=== PATIENT | female | born 1955 | race African-American/Black ===

== ENCOUNTER 2023-04-03 12:35 | Inpatient (IN) | payer MEDICARE, OTHER ==
--- NOTE | 2023-04-03 12:50 | ED ---
General Adult HPI - General Source: patient, RN notes reviewed Mode of arrival: ambulatory Limitations: no limitations <David Serna - Last Filed: 04/03/23 12:49> - General Source: patient, RN notes reviewed Mode of arrival: ambulatory Limitations: no limitations <Chandni Shanks - Last Filed: 04/04/23 00:31> - General Chief complaint: Back Pain/Injury Stated complaint: fever back pain Time Seen by Provider: 04/03/23 12:49 - History of Present Illness Initial comments: 67-year-old female presents emergency Department with chief complaint of fever, hyperglycemia, hypertension. Patient is at [facility] states that she was not feeling well states that she had some body aches. Patient noted have low-grade fever per her report and her blood sugar was in the 300s. Patient states she does have some urinary frequency. Patient denies any significant cough or cold- like symptoms. Patient states she always has pain from her rheumatoid arthritis. Patient is at [facility] for alcohol rehab (David Serna) This is a 67-year-old female who presents to the emergency department for elevated blood sugar, bilateral flank pain, and disorientation. Patient has been at [facility] for 10 days for alcohol abuse. States that they have been giving her insulin for management of her diabetes, however over the last 3-4 days her sugar has been in the mid 400s, which is very unusual for her. She has type 2 diabetes but is otherwise not insulin-dependent, states that they're only giving this to her because she is at [facility]. She cannot recall what she was on prior to this. Denies any known history of DKA. States that over the last 2-3 days she has started to feel very disoriented and is concerned that she will fall. Additionally, she has had pain to the mid back and feels like she is having urinary frequency. Also feels very weak and was told that she has a low- grade fever. She was subsequently sent to the emergency department for further evaluation. (Chandni Shanks) - Related Data Home Medications Medication Instructions Recorded Confirmed Acetaminophen Tab [Tylenol] 650 mg PO Q4H PRN 04/03/23 04/03/23 Atorvastatin [Lipitor] 20 mg PO HS 04/03/23 04/03/23 Folic Acid 1 mg PO DAILY 04/03/23 04/03/23 Gabapentin [Neurontin] 400 mg PO BID PRN 04/03/23 04/03/23 Ibuprofen [Motrin Ib] 600 mg PO Q6H PRN 04/03/23 04/03/23 Insulin Regular, Human [Novolin R] See Protocol SQ AC-TID 04/03/23 04/03/23 Mag Hydrox/Aluminum Hyd/Simeth 30 ml PO Q4H PRN 04/03/23 04/03/23 [Mylanta Maximum Strength Liq] NIFEdipine XL [Procardia Xl] 30 mg PO DAILY 04/03/23 04/03/23 Sertraline HCl [Zoloft] 100 mg PO DAILY 04/03/23 04/03/23 atenoloL [Tenormin] 25 mg PO DAILY 04/03/23 04/03/23 buPROPion SR [Wellbutrin SR] 150 mg PO DAILY 04/03/23 04/03/23 traZODone HCL [Desyrel] 50 mg PO HS PRN 04/03/23 04/03/23 Allergies Allergy/AdvReac Type Severity Reaction Status Date / Time No Known Allergies Allergy Verified 04/03/23 22:28 Review of Systems ROS Other: All systems not noted in ROS Statement are negative. <David Serna - Last Filed: 04/03/23 12:49> ROS Other: All systems not noted in ROS Statement are negative. <Chandni Shanks - Last Filed: 04/04/23 00:31> ROS Statement: Those systems with pertinent positive or pertinent negative responses have been documented in the HPI. General Exam <David Serna - Last Filed: 04/03/23 12:49> Limitations: no limitations General appearance: alert, in no apparent distress Head exam: Present: atraumatic, normocephalic, normal inspection Respiratory exam: Present: normal lung sounds bilaterally. Absent: respiratory distress, wheezes, rales, rhonchi, stridor Cardiovascular Exam: Present: regular rate, normal rhythm, normal heart sounds. Absent: systolic murmur, diastolic murmur, rubs, gallop, clicks Back exam: Present: CVA tenderness (R), CVA tenderness (L) Neurological exam: Present: alert, oriented X3, CN II-XII intact Psychiatric exam: Present: normal affect, normal mood Skin exam: Present: warm, dry, intact, normal color. Absent: rash <Chandni Shanks - Last Filed: 04/04/23 00:31> - General Exam Comments Initial Comments: Visual Physical Exam Vital signs reviewed General: Well-appearing, nontoxic, no acute distress. Head: Normocephalic, atraumatic Eyes: PERRLA, EOMI ENT: Airway patent Chest: Nonlabored breathing Skin: No visual rash, normal skin tone Neuro: Alert and oriented 3 Musculoskeletal: No gross abnormalities (David Serna) Course Vital Signs 04/03/23 04/03/23 12:50 22:31 Temperature 99.2 F 98.8 F Pulse Rate 99 99 Respiratory 20 22 Rate Blood Pressure 80/51 125/83 O2 Sat by Pulse 97 98 Oximetry Medical Decision Making <David Serna - Last Filed: 04/03/23 12:49> - Lab Data Result diagrams: 04/03/23 13:27 04/03/23 13:27 - Radiology Data Radiology results: report reviewed, image reviewed <Chandni Shanks - Last Filed: 04/04/23 00:31> - Medical Decision Making I completed the quick note portion of this chart signed David Serna PA-C (David Serna) This is a 67-year-old female who presents to the emergency department for hyperglycemia, flank pain, and disorientation. Was pt. sent in by a medical professional or institution? @ -[facility] Did you speak to anyone other than the patient for history? @ -No Did you review nursing and triage notes? @ -Yes, and I agree, it is accurate with regards to the patient's symptoms. Were old charts reviewed? @ -No Differential Diagnosis? @ -Differential Flank Pain: UTI, pyelonephritis, kidney stone, musculoskeletal, pancreatitis, cholecystitis, this is not meant to be an all-inclusive list. EKG interpreted by me (3pts min.)? @ -EKG interpreted by me demonstrating the following: Sinus rhythm. Ventricular rate 94 beats per minute, IN interval 140 ms, QRS duration 68 ms, QTC 390 ms. X-rays interpreted by me (1pt min.)? @ -Chest x-ray obtained, my interpretation identifies no localized consolidat ions or infiltrates. CT interpreted by me (1pt min.)? @ -CT scan of the abdomen/pelvis obtained. My interpretation identifies no evidence of a ureteral calculus. U/S interpreted by me (1pt. min.)? @ -Not obtained What testing was considered but not performed? (CT, X-rays, U/S, labs)? Why? @ -None What meds were considered but not given? Why? @ -None Did you discuss the management of the patient with other professionals? @ -Yes, Maury Whitten with [facility], who accepts the patient for admission. Did you reconcile home meds? @ -Yes Was smoking cessation discussed for >3mins.? @ -No Was critical care preformed (if so, how long)? @ -No Were there social determinants of health that impacted care today? How? (Homelessness, low income, unemployed, alcoholism, drug addiction, trans portation, low edu. Level, literacy, decrease access to med. care, assisted, rehab)? @ -No Was there de-escalation of care discussed even if they declined? (Discuss DNR or withdrawal of care, Hospice)? @ -No What co-morbidities impacted this encounter? (DM, HTN, Smoking, COPD, CAD, Cancer, CVA, Hep., AIDS, mental health diagnosis, sleep apnea, morbid obesity)? @ -DM, rheumatoid arthritis, HLD, HTN Was patient admitted / discharged? @ -Admitted. Lab work obtained revealing leukocytosis as well as poor renal function. Patient has never been here in the past and we have no renal function for comparison. On discussion with the patient, she has no known history of kidney problems. Patient also found to have hypomagnesemia with a magnesium of 1.1. While lab work demonstrates a blood sugar of 299, anion gap of 14, and bicarb of 17, acetone is negative. COVID, influenza, and RSV testing were negative. Chest x-ray reveals no acute process. Urinalysis is suggestive of infection and was sent for culture. Computed tomography scan of the abdomen and pelvis was obtained. There was no evidence of a ureteral calculus, however she was found to have fat stranding around the inferior pole of the right kidney suggestive of pyelonephritis. This would be consistent with the patient's symptoms and presentation. She was incidentally noted to have moderate colonic stool burden and a partially calcified mass within the tail of the pancreas. Patient does meet septic criteria with leukocytosis and tachycardia and she was started on the septic protocol. However, she was in the waiting room for almost 9 hours, and we were therefore unable to address the sepsis as soon as we otherwise would have. Vancomycin and ceftriaxone administered initially, however vancomycin was discontinued when the urine returned appearing to be the source of infection along with the characteristic CT findings for pyelonephritis. Blood cultures obtained. 2L bolus of IV fluids administered per the 30-40 mL/kg requirements and she was started on maintenance IV fluids at 130 mL/hr. She was also given 4g Magnesium Sulfate for the hypomagnesemia. Patient admitted to medicine for sepsis likely secondary to UTI/pyelonephritis and hypomagnesemia. Consult for infectious disease placed. Undiagnosed new problem with uncertain prognosis? @ -None Drug Therapy requiring intensive monitoring for toxicity (Heparin, Nitro, Insu yuriy, Cardizem)? @ -None Were any procedures done? @ -None Diagnosis/symptom? @ -Sepsis, hypomagnesemia, pyelonephritis Acute, or Chronic, or Acute on Chronic? @ -Acute Uncomplicated (without systemic symptoms) or Complicated (systemic symptoms)? @ -Complicated Side effects of treatment? @ -None Exacerbation, Progression, or Severe Exacerbation] @ -Not applicable Poses a threat to life or bodily function? @ -Yes This case was discussed in detail with the attending ED physician, Dr. Don. Presentation, findings, and treatment plan discussed in detail as well. (Chandni Ramirez) - Lab Data Lab Results 04/03/23 04/03/23 04/03/23 Range/Units 13:27 13:27 13:27 WBC 16.1 H (3.8-10.6) k/uL RBC 3.16 L (3.80-5.40) m/uL Hgb 10.7 L (11.4-16.0) gm/dL Hct 31.7 L (34.0-46.0) % MCV 100.2 H (80.0-100.0) fL MCH 33.9 (25.0-35.0) pg MCHC 33.9 (31.0-37.0) g/dL RDW 15.2 (11.5-15.5) % Plt Count 222 (150-450) k/uL MPV 7.8 Neutrophils % 83 % Lymphocytes % 8 % Monocytes % 6 % Eosinophils % 2 % Basophils % 0 % Neutrophils # 13.3 H (1.3-7.7) k/uL Lymphocytes # 1.2 (1.0-4.8) k/uL Monocytes # 1.0 (0-1.0) k/uL Eosinophils # 0.3 (0-0.7) k/uL Basophils # 0.0 (0-0.2) k/uL Macrocytosis Slight VBG pH (7.31-7.41) VBG pCO2 (37-51) mmHg VBG HCO3 (24-28) mmol/L Sodium 136 L (137-145) mmol/L Potassium 4.4 (3.5-5.1) mmol/L Chloride 105 (98-107) mmol/L Carbon Dioxide 17 L (22-30) mmol/L Anion Gap 14 mmol/L BUN 37 H (7-17) mg/dL Creatinine 1.59 H (0.52-1.04) mg/dL Est GFR (CKD-EPI)AfAm 38 (>60 ml/min/1.73 sqM) Est GFR (CKD-EPI)NonAf 33 (>60 ml/min/1.73 sqM) Glucose 275 H (74-99) mg/dL POC Glucose (mg/dL) (70-110) mg/dL POC Glu Molding Manager ID Plasma Lactic Acid Maldonado (0.7-2.0) mmol/L Calcium 9.4 (8.4-10.2) mg/dL Magnesium 1.1 L (1.6-2.3) mg/dL Total Bilirubin 0.7 (0.2-1.3) mg/dL AST 27 (14-36) U/L ALT 19 (4-34) U/L Alkaline Phosphatase 68 (38-126) U/L Total Protein 6.8 (6.3-8.2) g/dL Albumin 3.9 (3.5-5.0) g/dL Urine Color Urine Appearance (Clear) Urine pH (5.0-8.0) Ur Specific Cornell (1.001-1.035) Urine Protein (Negative) Urine Glucose (UA) (Negative) Urine Ketones (Negative) Urine Blood (Negative) Urine Nitrite (Negative) Urine Bilirubin (Negative) Urine Urobilinogen (<2.0) mg/dL Ur Leukocyte Esterase (Negative) Urine RBC (0-5) /hpf Urine WBC (0-5) /hpf Urine WBC Clumps (None) /hpf Ur Squamous Epith Cells (0-4) /hpf Urine Bacteria (None) /hpf Hyaline Casts (0-2) /lpf Urine Mucus (None) /hpf Acetone, Qual (Negative) Influenza Type A (PCR) Not Detected (Not Detectd) Influenza Type B (PCR) Not Detected (Not Detectd) RSV (PCR) Not Detected (Not Detectd) SARS-CoV-2 (PCR) Not Detected (Not Detectd) 04/03/23 04/03/23 04/03/23 Range/Units 13:27 13: 18:03 WBC (3.8-10.6) k/uL RBC (3.80-5.40) m/uL Hgb (11.4-16.0) gm/dL Hct (34.0-46.0) % MCV (80.0-100.0) fL MCH (25.0-35.0) pg MCHC (31.0-37.0) g/dL RDW (11.5-15.5) % Plt Count (150-450) k/uL MPV Neutrophils % % Lymphocytes % % Monocytes % % Eosinophils % % Basophils % % Neutrophils # (1.3-7.7) k/uL Lymphocytes # (1.0-4.8) k/uL Monocytes # (0-1.0) k/uL Eosinophils # (0-0.7) k/uL Basophils # (0-0.2) k/uL Macrocytosis VBG pH (7.31-7.41) VBG pCO2 (37-51) mmHg VBG HCO3 (24-28) mmol/L Sodium (137-145) mmol/L Potassium (3.5-5.1) mmol/L Chloride (98-107) mmol/L Carbon Dioxide (22-30) mmol/L Anion Gap mmol/L BUN (7-17) mg/dL Creatinine (0.52-1.04) mg/dL Est GFR (CKD-EPI)AfAm (>60 ml/min/1.73 sqM) Est GFR (CKD-EPI)NonAf (>60 ml/min/1.73 sqM) Glucose (74-99) mg/dL POC Glucose (mg/dL) (70-110) mg/dL POC Glu Molding Manager ID Plasma Lactic Acid Maldonado 1.7 (0.7-2.0) mmol/L Calcium (8.4-10.2) mg/dL Magnesium (1.6-2.3) mg/dL Total Bilirubin (0.2-1.3) mg/dL AST (14-36) U/L ALT (4-34) U/L Alkaline Phosphatase (38-126) U/L Total Protein (6.3-8.2) g/dL Albumin (3.5-5.0) g/dL Urine Color Yellow Urine Appearance Cloudy H (Clear) Urine pH 5.5 (5.0-8.0) Ur Specific Cornell 1.023 (1.001-1.035) Urine Protein 1+ H (Negative) Urine Glucose (UA) Trace H (Negative) Urine Ketones Negative (Negative) Urine Blood Negative (Negative) Urine Nitrite Negative (Negative) Urine Bilirubin Negative (Negative) Urine Urobilinogen <2.0 (<2.0) mg/dL Ur Leukocyte Esterase Large H (Negative) Urine RBC 2 (0-5) /hpf Urine WBC 113 H (0-5) /hpf Urine WBC Clumps Rare H (None) /hpf Ur Squamous Epith Cells 2 (0-4) /hpf Urine Bacteria Rare H (None) /hpf Hyaline Casts 3 H (0-2) /lpf Urine Mucus Rare H (None) /hpf Acetone, Qual Negative (Negative) Influenza Type A (PCR) (Not Detectd) Influenza Type B (PCR) (Not Detectd) RSV (PCR) (Not Detectd) SARS-CoV-2 (PCR) (Not Detectd) 04/03/23 04/03/23 04/03/23 Range/Units 20:24 21:45 22:20 WBC (3.8-10.6) k/uL RBC (3.80-5.40) m/uL Hgb (11.4-16.0) gm/dL Hct (34.0-46.0) % MCV (80.0-100.0) fL MCH (25.0-35.0) pg MCHC (31.0-37.0) g/dL RDW (11.5-15.5) % Plt Count (150-450) k/uL MPV Neutrophils % % Lymphocytes % % Monocytes % % Eosinophils % % Basophils % % Neutrophils # (1.3-7.7) k/uL Lymphocytes # (1.0-4.8) k/uL Monocytes # (0-1.0) k/uL Eosinophils # (0-0.7) k/uL Basophils # (0-0.2) k/uL Macrocytosis VBG pH 7.38 (7.31-7.41) VBG pCO2 39 (37-51) mmHg VBG HCO3 23 L (24-28) mmol/L Sodium (137-145) mmol/L Potassium (3.5-5.1) mmol/L Chloride (98-107) mmol/L Carbon Dioxide (22-30) mmol/L Anion Gap mmol/L BUN (7-17) mg/dL Creatinine (0.52-1.04) mg/dL Est GFR (CKD-EPI)AfAm (>60 ml/min/1.73 sqM) Est GFR (CKD-EPI)NonAf (>60 ml/min/1.73 sqM) Glucose (74-99) mg/dL POC Glucose (mg/dL) 299 H 234 H (70-110) mg/dL POC Glu Molding Manager ID Chuck Rollins Felix Plasma Lactic Acid Maldonado (0.7-2.0) mmol/L Calcium (8.4-10.2) mg/dL Magnesium (1.6-2.3) mg/dL Total Bilirubin (0.2-1.3) mg/dL AST (14-36) U/L ALT (4-34) U/L Alkaline Phosphatase (38-126) U/L Total Protein (6.3-8.2) g/dL Albumin (3.5-5.0) g/dL Urine Color Urine Appearance (Clear) Urine pH (5.0-8.0) Ur Specific Cornell (1.001-1.035) Urine Protein (Negative) Urine Glucose (UA) (Negative) Urine Ketones (Negative) Urine Blood (Negative) Urine Nitrite (Negative) Urine Bilirubin (Negative) Urine Urobilinogen (<2.0) mg/dL Ur Leukocyte Esterase (Negative) Urine RBC (0-5) /hpf Urine WBC (0-5) /hpf Urine WBC Clumps (None) /hpf Ur Squamous Epith Cells (0-4) /hpf Urine Bacteria (None) /hpf Hyaline Casts (0-2) /lpf Urine Mucus (None) /hpf Acetone, Qual (Negative) Influenza Type A (PCR) (Not Detectd) Influenza Type B (PCR) (Not Detectd) RSV (PCR) (Not Detectd) SARS-CoV-2 (PCR) (Not Detectd) Disposition <David Serna - Last Filed: 04/03/23 12:49> <Chandni Shanks - Last Filed: 04/04/23 00:31> Clinical Impression: Sepsis, Hypomagnesemia, Renal failure, UTI (urinary tract infection), Pyelonephritis Disposition: ADMITTED IP TO THIS HOSP
[2023-04-03 13:36] LABS: Basophils % (A) 0 %; Eosinophils # (A) 0.3 k/uL (0-0.7); Eosinophils % (A) 2 %; HCT 31.7 % (34.0-46.0); HGB 10.7 gm/dL (11.4-16.0); Lymphocytes # (A) 1.2 k/uL (1.0-4.8); Lymphocytes % (A) 8 %; MCH 33.9 pg (25.0-35.0); MCHC 33.9 g/dL (31.0-37.0); MCV 100.2 fL (80.0-100.0); Macrocytosis Slight; Mean Platelet Volume 7.8; Monocytes % (A) 6 %; Neutrophils # (A) 13.3 k/uL (1.3-7.7); Neutrophils % (A) 83 %; Platelet Count 222 k/uL (150-450); RBC 3.16 m/uL (3.80-5.40); RDW 15.2 % (11.5-15.5); WBC 16.1 k/uL (3.8-10.6)
[2023-04-03 13:56] LABS: ALT 19 U/L (4-34); AST 27 U/L (14-36); African American GFR (CKD) 38 (>60 ml/min/1.73 sqM); Albumin 3.9 g/dL (3.5-5.0); Alkaline Phosphatase 68 U/L (38-126); Anion Gap 14 mmol/L; Blood Urea Nitrogen 37 mg/dL (7-17); Calcium 9.4 mg/dL (8.4-10.2); Carbon Dioxide 17 mmol/L (22-30); Chloride 105 mmol/L (98-107); Glucose 275 mg/dL (74-99); Magnesium 1.1 mg/dL (1.6-2.3); Non-African American GFR(CKD) 33 (>60 ml/min/1.73 sqM); Potassium 4.4 mmol/L (3.5-5.1); Sodium 136 mmol/L (137-145); Total Bilirubin 0.7 mg/dL (0.2-1.3); Total Protein 6.8 g/dL (6.3-8.2)
--- NOTE | 2023-04-03 14:08 | XR ---
EXAMINATION TYPE: XR chest 2V DATE OF EXAM: 04/03/2023 1:53 PM CLINICAL INDICATION:Female, 67 years old with history of fever; COMPARISON: None TECHNIQUE: XR chest 2V Frontal and lateral views of the chest. FINDINGS: Lungs/Pleura: There is no evidence of pleural effusion, focal consolidation, or pneumothorax. Pulmonary vascularity: Unremarkable. Heart/mediastinum: Cardiomediastinal silhouette is unremarkable. Musculoskeletal: No acute osseous pathology. IMPRESSION: No acute cardiopulmonary disease/process.
[2023-04-03] MEDS ORDERED: GABAPENTIN 400 MG CAP PO STA (19:26)
[2023-04-03] MEDS ORDERED: ACETAMINOPHEN TAB 325 MG TAB PO STA (19:32)
[2023-04-03 20:25] LABS: Glucose,Whole Blood 299 mg/dL (70-110)
[2023-04-03] MEDS ORDERED: VANCOMYCIN IV PER PHARMACY 1 EACH MISC MISCELLANE PRN (20:44)
[2023-04-03] MEDS ORDERED: SODIUM CHLORIDE 0.9% 2,000 ML IV STA (20:44)
[2023-04-03] MEDS ORDERED: VANCOMYCIN 750 MG in SODIUM CHLORIDE 0.9% 250 ML IVPB STA (20:46)
[2023-04-03] MEDS ORDERED: ACETAMINOPHEN TAB 500 MG TAB PO STA (21:40)
[2023-04-03] MEDS ORDERED: MORPHINE SULFATE 4 MG/ML SYRINGE IVP STA (21:40)
[2023-04-03] MEDS ORDERED: INSULIN REGULAR BOLUS (FROM DRIP BAG) IV ONE (21:46)
[2023-04-03] MEDS ORDERED: INSULIN REGULAR 100 UNIT/ML VIAL (IV) IV ONE (22:00)
[2023-04-03] MEDS ORDERED: D5-0.45% NACL WITH KCL 20MEQ/L 1,000 ML IV SCH (22:00)
[2023-04-03] MEDS ORDERED: INSULIN REGULAR 100 UNIT in SODIUM CHLORIDE 0.9% 100 ML IV SCH (22:00)
[2023-04-03 22:08] LABS: VBG PH 7.38 (7.31-7.41)
[2023-04-03 22:17] LABS: Appearance,Urine Cloudy (Clear); Bacteria,Urine Rare /hpf; Bilirubin,Urine Negative (Negative); Blood,Urine Negative (Negative); Color,Urine Yellow; Glucose,Urine (UA) Trace (Negative); Hyaline Casts,Urine 3 /lpf (0-2); Ketones,Urine Negative (Negative); Leukocyte Esterase,Urine Large (Negative); Mucus,Urine Rare /hpf; Nitrite,Urine Negative (Negative); PH, Urine 5.5 (5.0-8.0); Protein,Urine 1+ (Negative); RBC,Urine 2 /hpf (0-5); Specific Gravity,Urine 1.023 (1.001-1.035); Squamous Epithelial Cell,Urine 2 /hpf (0-4); Urobilinogen,Urine <2.0 mg/dL (<2.0); WBC,Urine 113 /hpf (0-5)
[2023-04-03 22:22] LABS: Glucose,Whole Blood 234 mg/dL (70-110)
[2023-04-03] MEDS: MAGNESIUM SULFATE-D5W PMX 1 GM in DEXTROSE/WATER 1 100ML.BAG IVPB SCH ×3 (22:26→23:46)
[2023-04-03] MEDS ORDERED: ACETAMINOPHEN TAB 325 MG TAB PO PRN (23:14)
[2023-04-03] MEDS ORDERED: ONDANSETRON 4 MG/2 ML VIAL IVP PRN (23:14)
[2023-04-03] MEDS ORDERED: NALOXONE 0.4 MG/ML 1 ML VIAL IV PRN (23:14)
[2023-04-03] MEDS ORDERED: MAG HYDROX/AL HYDROX/SIMETH 30 ML CUP PO PRN (23:16)
--- NOTE | 2023-04-03 23:34 | CT ---
EXAM: CT Abdomen and Pelvis Without Intravenous Contrast CLINICAL HISTORY: ITS.REASON CT Reason: Left flank pain TECHNIQUE: Axial computed tomography images of the abdomen and pelvis without intravenous contrast. CTDI is 5.5 mGy and DLP is 262 mGy-cm. This CT exam was performed using one or more of the following dose reduction techniques: automated exposure control, adjustment of the mA and/or kV according to patient size, and/or use of iterative reconstruction technique. COMPARISON: No relevant prior studies available. FINDINGS: ABDOMEN: Liver: Unremarkable. Gallbladder and bile ducts: Unremarkable. Pancreas: Peripherally calcified mass within the tail of the pancreas measuring 3.4 x 2.8 cm. Spleen: Unremarkable. Adrenals: Unremarkable. Kidneys and ureters: Fat stranding around the inferior pole of the right kidney. No ureteral stone. Infection/pyelonephritis considered the most likely etiology. No hydronephrosis. Stomach and bowel: Moderate colonic stool burden. No obstruction or inflammatory changes along the GI tract. PELVIS: Appendix: No findings to suggest acute appendicitis. Bladder: Unremarkable. Reproductive: Hysterectomy. ABDOMEN and PELVIS: Intraperitoneal space: Unremarkable. No free air. No significant fluid collection. Bones/joints: No acute fracture. Soft tissues: Unremarkable. Vasculature: Unremarkable. Lymph nodes: Unremarkable. IMPRESSION: 1. Fat stranding around the inferior pole of the right kidney. No ureteral stone. Infection/pyelonephritis considered the most likely etiology. 2. Moderate colonic stool burden. No obstruction or inflammatory changes along the GI tract. 3. Peripherally calcified mass within the tail of the pancreas measuring 3.4 x 2.8 cm. Consider MRI/MRCP for further evaluation.
[2023-04-03] MEDS: ACETAMINOPHEN TAB 325 MG TAB PO PRN (23:55)
[2023-04-04] MEDS: MAGNESIUM SULFATE-D5W PMX 1 GM in DEXTROSE/WATER 1 100ML.BAG IVPB SCH ×2 (00:43→01:46)
[2023-04-04] MEDS: SODIUM CHLORIDE 0.9% 1,000 ML IV SCH ×2 (05:10→13:38)
[2023-04-04] MEDS: GABAPENTIN 400 MG CAP PO PRN ×2 (05:12→09:32)
[2023-04-04] MEDS: MORPHINE SULFATE 4 MG/ML SYRINGE IV PRN ×2 (05:12→11:42)
[2023-04-04 07:52] LABS: African American GFR (CKD) 52 (>60 ml/min/1.73 sqM); Non-African American GFR(CKD) 45 (>60 ml/min/1.73 sqM)
[2023-04-04] MEDS: buPROPion SR 150 MG TABLET.ER PO SCH (08:18)
[2023-04-04] MEDS: SERTRALINE 100 MG TAB PO SCH (08:18)
[2023-04-04] MEDS: atenoloL 25 MG TAB PO SCH (08:18)
[2023-04-04] MEDS: FOLIC ACID 1 MG TAB PO SCH (08:18)
[2023-04-04 08:53] LABS: Glucose,Whole Blood 299 mg/dL (70-110)
[2023-04-04] MEDS ORDERED: NIFEdipine XL 30 MG TAB.ER.24 PO SCH (09:00)
[2023-04-04] MEDS: ACETAMINOPHEN TAB 325 MG TAB PO PRN ×2 (09:37→22:19)
[2023-04-04 11:52] LABS: Glucose,Whole Blood 244 mg/dL (70-110)
[2023-04-04 12:19] LABS: Glucose,Whole Blood 232 mg/dL (70-110)
[2023-04-04] MEDS ORDERED: GABAPENTIN 400 MG CAP PO PRN (12:29)
--- NOTE | 2023-04-04 12:36 | P.HPIM ---
History of Present Illness 67-year-old female came in for fever hyperglycemia. Patient is at [facility] her last drink was 1415 days ago patient is shaking quite a bit. Patient does have history of from her arthritis. Patient denied any cough denied any dysuria patient is comparing of the right flank pain moderate pain CT of the abdomen did show some possible pyelonephritis versus some pancreatitis in the tail of the pancreas. Lipase is not available which will be ordered, UA did show a white blood cell counseling and. Blood cultures were obtain patient had a fever of 103 COVID-19 influenza and RSV are negative. Patient main complaint is excessi ve shaking and patient complains a she has anxiety. REVIEW OF SYSTEMS: CONSTITUTIONAL: No fever, no malaise, no fatigue. HEENT: No recent visual problems or hearing problems. Denied any sore throat. CARDIOVASCULAR: No chest pain, orthopnea, PND, no palpitations, no syncope. PULMONARY: No shortness of breath, no cough, no hemoptysis. GASTROINTESTINAL: No diarrhea, no nausea, no vomiting as mentioned in HPI NEUROLOGICAL: No headaches, no weakness, no numbness. HEMATOLOGICAL: Denies any bleeding or petechiae. GENITOURINARY: Denies any burning micturition, frequency, or urgency. MUSCULOSKELETAL/RHEUMATOLOGICAL: Denies any joint pain, swelling, or any muscle pain. ENDOCRINE: Denies any polyuria or polydipsia. The rest of the 14-point review of systems is negative. PHYSICAL EXAMINATION: GENERAL: The patient is alert and oriented x3, not in any acute distress. Patient is shaking a thin built female HEENT: Pupils are round and equally reacting to light. EOMI. No scleral icterus. No conjunctival pallor. Normocephalic, atraumatic. No pharyngeal erythema. No thyromegaly. CARDIOVASCULAR: S1 and S2 present. No murmurs, rubs, or gallops. PULMONARY: Chest is clear to auscultation, no wheezing or crackles. ABDOMEN: Soft, minimal right flank tenderness, nondistended, normoactive bowel sounds. No palpable organomegaly. MUSCULOSKELETAL: No joint swelling or deformity. EXTREMITIES: No cyanosis, clubbing, or pedal edema. NEUROLOGICAL: Gross neurological examination did not reveal any focal deficits. SKIN: No rashes. Assessment and plan -Sepsis: Secondary to urinary tract infection and pyelonephritis: Patient will be started on Rocephin 2 g awaiting blood cultures and urine cultures. -Excessive shaking secondary to anxiety and fever -Possibly a pancreatitis as per the computed tomography scan of the abdomen: Will order lipase patient will continued on IV fluids we'll cut down the IV fluids -Hypertension: Hold off on amlodipine is the blood pressure medications will be continued -Acute renal failure secondary to sepsis continue with IV fluids currently want a kidney function possibly acute tubular necrosis -Hyperlipidemia -Peripheral neuropathy -Type 2 diabetes mellitus uncontrolled elevated blood sugars with sepsis patient was started on sliding scale insulin depending of insulin requirement will titrate the insulin regimen -Hyperlipidemia -Rheumatoid arthritis history -Alcohol abuse history presently from [facility] possibly not having withdrawals as her last alcohol drink was 14 days ago DVT prophylaxis: Subcutaneous heparin Past Medical History Past Medical History: Diabetes Mellitus, Hyperlipidemia, Hypertension, Rheumatoid Arthritis (RA) History of Any Multi-Drug Resistant Organisms: None Reported Past Surgical History: Hysterectomy, Joint Replacement, Orthopedic Surgery Past Alcohol Use History: Abuse Past Drug Use History: Marijuana Medications and Allergies Home Medications Medication Instructions Recorded Confirmed Type Acetaminophen Tab [Tylenol] 650 mg PO Q4H PRN 04/03/23 04/03/23 History Atorvastatin [Lipitor] 20 mg PO HS 04/03/23 04/03/23 History Folic Acid 1 mg PO DAILY 04/03/23 04/03/23 History Gabapentin [Neurontin] 400 mg PO BID PRN 04/03/23 04/03/23 History Ibuprofen [Motrin Ib] 600 mg PO Q6H PRN 04/03/23 04/03/23 History Insulin Regular, Human [Novolin R] See Protocol SQ AC-TID 04/03/23 04/03/23 History Mag Hydrox/Aluminum Hyd/Simeth 30 ml PO Q4H PRN 04/03/23 04/03/23 History [Mylanta Maximum Strength Liq] NIFEdipine XL [Procardia Xl] 30 mg PO DAILY 04/03/23 04/03/23 History Sertraline HCl [Zoloft] 100 mg PO DAILY 04/03/23 04/03/23 History atenoloL [Tenormin] 25 mg PO DAILY 04/03/23 04/03/23 History buPROPion SR [Wellbutrin SR] 150 mg PO DAILY 04/03/23 04/03/23 History traZODone HCL [Desyrel] 50 mg PO HS PRN 04/03/23 04/03/23 History Allergies Allergy/AdvReac Type Severity Reaction Status Date / Time No Known Allergies Allergy Verified 04/03/23 22:28 Physical Exam Vitals: Vital Signs Temp Pulse Resp BP Pulse Ox 04/04/23 12:00 101.1 F H 102 H 18 136/84 92 L 04/04/23 11:30 100.7 F H 107 H 18 134/83 91 L 04/04/23 10:55 100.2 F H 110 H 18 98 04/04/23 10:00 108 H 18 121/81 96 04/04/23 09:36 103.0 F H 113 H 18 153/102 98 04/04/23 07:51 113 H 18 130/85 96 04/04/23 06:11 105 H 18 126/80 95 04/04/23 05:00 115 H 18 134/77 98 04/04/23 03:27 95 19 116/75 04/04/23 01:48 96 17 119/75 04/04/23 00:33 93 17 04/03/23 22:31 98.8 F 99 22 125/83 98 04/03/23 12:50 99.2 F 99 20 80/51 97 Results CBC & Chem 7: 04/03/23 13:27 04/04/23 07:22 Labs: Abnormal Lab Results - Last 24 Hours (Table) 04/03/23 04/03/23 04/03/23 Range/Units 13:27 13:27 18:03 WBC 16.1 H (3.8-10.6) k/uL RBC 3.16 L (3.80-5.40) m/uL Hgb 10.7 L (11.4-16.0) gm/dL Hct 31.7 L (34.0-46.0) % MCV 100.2 H (80.0-100.0) fL Neutrophils # 13.3 H (1.3-7.7) k/uL VBG HCO3 (24-28) mmol/L Sodium 136 L (137-145) mmol/L Carbon Dioxide 17 L (22-30) mmol/L BUN 37 H (7-17) mg/dL Creatinine 1.59 H (0.52-1.04) mg/dL Glucose 275 H (74-99) mg/dL POC Glucose (mg/dL) (70-110) mg/dL Hemoglobin A1c (<=6.0) % Magnesium 1.1 L (1.6-2.3) mg/dL Urine Appearance Cloudy H (Clear) Urine Protein 1+ H (Negative) Urine Glucose (UA) Trace H (Negative) Ur Leukocyte Esterase Large H (Negative) Urine WBC 113 H (0-5) /hpf Urine WBC Clumps Rare H (None) /hpf Urine Bacteria Rare H (None) /hpf Hyaline Casts 3 H (0-2) /lpf Urine Mucus Rare H (None) /hpf 04/03/23 04/03/23 04/03/23 Range/Units 20:24 21:45 21:45 WBC (3.8-10.6) k/uL RBC (3.80-5.40) m/uL Hgb (11.4-16.0) gm/dL Hct (34.0-46.0) % MCV (80.0-100.0) fL Neutrophils # (1.3-7.7) k/uL VBG HCO3 23 L (24-28) mmol/L Sodium (137-145) mmol/L Carbon Dioxide (22-30) mmol/L BUN (7-17) mg/dL Creatinine (0.52-1.04) mg/dL Glucose (74-99) mg/dL POC Glucose (mg/dL) 299 H (70-110) mg/dL Hemoglobin A1c 8.0 H (<=6.0) % Magnesium (1.6-2.3) mg/dL Urine Appearance (Clear) Urine Protein (Negative) Urine Glucose (UA) (Negative) Ur Leukocyte Esterase (Negative) Urine WBC (0-5) /hpf Urine WBC Clumps (None) /hpf Urine Bacteria (None) /hpf Hyaline Casts (0-2) /lpf Urine Mucus (None) /hpf 04/03/23 04/04/23 04/04/23 Range/Units 22:20 07:22 08:52 WBC (3.8-10.6) k/uL RBC (3.80-5.40) m/uL Hgb (11.4-16.0) gm/dL Hct (34.0-46.0) % MCV (80.0-100.0) fL Neutrophils # (1.3-7.7) k/uL VBG HCO3 (24-28) mmol/L Sodium (137-145) mmol/L Carbon Dioxide (22-30) mmol/L BUN (7-17) mg/dL Creatinine 1.24 H (0.52-1.04) mg/dL Glucose (74-99) mg/dL POC Glucose (mg/dL) 234 H 299 H (70-110) mg/dL Hemoglobin A1c (<=6.0) % Magnesium (1.6-2.3) mg/dL Urine Appearance (Clear) Urine Protein (Negative) Urine Glucose (UA) (Negative) Ur Leukocyte Esterase (Negative) Urine WBC (0-5) /hpf Urine WBC Clumps (None) /hpf Urine Bacteria (None) /hpf Hyaline Casts (0-2) /lpf Urine Mucus (None) /hpf 04/04/23 04/04/23 Range/Units 11:51 12:18 WBC (3.8-10.6) k/uL RBC (3.80-5.40) m/uL Hgb (11.4-16.0) gm/dL Hct (34.0-46.0) % MCV (80.0-100.0) fL Neutrophils # (1.3-7.7) k/uL VBG HCO3 (24-28) mmol/L Sodium (137-145) mmol/L Carbon Dioxide (22-30) mmol/L BUN (7-17) mg/dL Creatinine (0.52-1.04) mg/dL Glucose (74-99) mg/dL POC Glucose (mg/dL) 244 H 232 H (70-110) mg/dL Hemoglobin A1c (<=6.0) % Magnesium (1.6-2.3) mg/dL Urine Appearance (Clear) Urine Protein (Negative) Urine Glucose (UA) (Negative) Ur Leukocyte Esterase (Negative) Urine WBC (0-5) /hpf Urine WBC Clumps (None) /hpf Urine Bacteria (None) /hpf Hyaline Casts (0-2) /lpf Urine Mucus (None) /hpf
[2023-04-04] MEDS: INSULIN ASPART (NovoLOG) 100 UNIT/ML VIAL SQ SCH ×3 (13:35→22:20)
[2023-04-04] MEDS ORDERED: VANCOMYCIN 750 MG in SODIUM CHLORIDE 0.9% 250 ML IVPB ONE (18:00)
[2023-04-04] MEDS ORDERED: ACETAMINOPHEN TAB 325 MG TAB PO STA (18:10)
[2023-04-04] MEDS: HYDROcodone/APAP 5-325MG 1 EACH TAB PO PRN (18:10)
[2023-04-04] MEDS: LORazepam 2 MG/ML INJ IV PRN (18:14)
[2023-04-04 20:35] LABS: Glucose,Whole Blood 160 mg/dL (70-110)
[2023-04-04] MEDS: ATORVASTATIN 20 MG TAB PO SCH ×2 (22:18→22:20)
[2023-04-04] MEDS: HEPARIN SODIUM,PORCINE 5,000 UNIT/ML 1 ML VIAL SQ SCH (22:20)
[2023-04-05] MEDS ORDERED: FUROSEMIDE 10 MG/ML 2 ML VIAL IV STA (01:46)
[2023-04-05] MEDS: SODIUM CHLORIDE 0.9% 1,000 ML IV SCH (01:57)
[2023-04-05] MEDS: HYDROcodone/APAP 5-325MG 1 EACH TAB PO PRN ×2 (02:17→13:12)
[2023-04-05] MEDS: LORazepam 2 MG/ML INJ IV PRN ×4 (04:13→23:54)
[2023-04-05 05:32] LABS: Glucose,Whole Blood 112 mg/dL (70-110)
[2023-04-05] MEDS: INSULIN ASPART (NovoLOG) 100 UNIT/ML VIAL SQ SCH ×4 (06:49→22:42)
--- NOTE | 2023-04-05 07:28 | P.CONS ---
History of Present Illness - Reason for Consult Consult date: 04/04/23 - History of Present Illness Patient is a 67-year-old female with a past medical significant for diabetes mellitus hypertension hyperlipidemia rheumatoid arthritis patient presented to the hospital yesterday afternoon for evaluation of fever and elevated blood sugar apparently the patient has been in [place] getting rehabilitation however the patient noticed to have increasing generalized body aches noticed to have elevated blood sugar for the patient has been sent to the hospital on arrival to the ER patient was initially febrile however subsequently did spike a fever of 103 degrees patient was tachycardic but not hypotensive mildly hypoxic requiring supplemental oxygen patient did have a white count of 16.1 with a left shift ,Creatinine has been mildly elevated with M-Zole normal patient did have a positive UA influenza RSV and COVID testing was negative patient did have a chest x-ray no acute cardiopulmonary disease process patient did have a CT abdominal pelvis for swelling along the inferior pole of the right kidney no ureteral stone pyelonephritis considered most likely etiology moderate colonic stool burden no obstruction or inflammatory changes peripherally calcified mass within the tail of the pancreas patient was started on ceftriaxone infectious disease was consulted for further management of antibiotic therapy Past Medical History Past Medical History: Diabetes Mellitus, Hyperlipidemia, Hypertension, Rheumatoid Arthritis (RA) History of Any Multi-Drug Resistant Organisms: None Reported Past Surgical History: Hysterectomy, Joint Replacement, Orthopedic Surgery Past Alcohol Use History: Abuse Past Drug Use History: Marijuana Medications and Allergies Home Medications Medication Instructions Recorded Confirmed Type Acetaminophen Tab [Tylenol] 650 mg PO Q4H PRN 04/03/23 04/03/23 History Atorvastatin [Lipitor] 20 mg PO HS 04/03/23 04/03/23 History Folic Acid 1 mg PO DAILY 04/03/23 04/03/23 History Gabapentin [Neurontin] 400 mg PO BID PRN 04/03/23 04/03/23 History Ibuprofen [Motrin Ib] 600 mg PO Q6H PRN 04/03/23 04/03/23 History Insulin Regular, Human [Novolin R] See Protocol SQ AC-TID 04/03/23 04/03/23 History Mag Hydrox/Aluminum Hyd/Simeth 30 ml PO Q4H PRN 04/03/23 04/03/23 History [Mylanta Maximum Strength Liq] NIFEdipine XL [Procardia Xl] 30 mg PO DAILY 04/03/23 04/03/23 History Sertraline HCl [Zoloft] 100 mg PO DAILY 04/03/23 04/03/23 History atenoloL [Tenormin] 25 mg PO DAILY 04/03/23 04/03/23 History buPROPion SR [Wellbutrin SR] 150 mg PO DAILY 04/03/23 04/03/23 History traZODone HCL [Desyrel] 50 mg PO HS PRN 04/03/23 04/03/23 History Allergies Allergy/AdvReac Type Severity Reaction Status Date / Time No Known Allergies Allergy Verified 04/03/23 22:28 Physical Exam Vitals: Vital Signs Temp Pulse Resp BP Pulse Ox 04/04/23 12:00 101.1 F H 102 H 18 136/84 92 L 04/04/23 11:30 100.7 F H 107 H 18 134/83 91 L 04/04/23 10:55 100.2 F H 110 H 18 98 04/04/23 10:00 108 H 18 121/81 96 04/04/23 09:36 103.0 F H 113 H 18 153/102 98 04/04/23 07:51 113 H 18 130/85 96 04/04/23 06:11 105 H 18 126/80 95 04/04/23 05:00 115 H 18 134/77 98 04/04/23 03:27 95 19 116/75 04/04/23 01:48 96 17 119/75 04/04/23 00:33 93 17 04/03/23 22:31 98.8 F 99 22 125/83 98 Results CBC & Chem 7: 04/03/23 13:27 04/04/23 07:22 Labs: Abnormal Lab Results - Last 24 Hours (Table) 04/03/23 04/03/23 04/03/23 Range/Units 13:27 13:27 18:03 WBC 16.1 H (3.8-10.6) k/uL RBC 3.16 L (3.80-5.40) m/uL Hgb 10.7 L (11.4-16.0) gm/dL Hct 31.7 L (34.0-46.0) % MCV 100.2 H (80.0-100.0) fL Neutrophils # 13.3 H (1.3-7.7) k/uL VBG HCO3 (24-28) mmol/L Sodium 136 L (137-145) mmol/L Carbon Dioxide 17 L (22-30) mmol/L BUN 37 H (7-17) mg/dL Creatinine 1.59 H (0.52-1.04) mg/dL Glucose 275 H (74-99) mg/dL POC Glucose (mg/dL) (70-110) mg/dL Hemoglobin A1c (<=6.0) % Magnesium 1.1 L (1.6-2.3) mg/dL Urine Appearance Cloudy H (Clear) Urine Protein 1+ H (Negative) Urine Glucose (UA) Trace H (Negative) Ur Leukocyte Esterase Large H (Negative) Urine WBC 113 H (0-5) /hpf Urine WBC Clumps Rare H (None) /hpf Urine Bacteria Rare H (None) /hpf Hyaline Casts 3 H (0-2) /lpf Urine Mucus Rare H (None) /hpf 04/03/23 04/03/23 04/03/23 Range/Units 20:24 21:45 21:45 WBC (3.8-10.6) k/uL RBC (3.80-5.40) m/uL Hgb (11.4-16.0) gm/dL Hct (34.0-46.0) % MCV (80.0-100.0) fL Neutrophils # (1.3-7.7) k/uL VBG HCO3 23 L (24-28) mmol/L Sodium (137-145) mmol/L Carbon Dioxide (22-30) mmol/L BUN (7-17) mg/dL Creatinine (0.52-1.04) mg/dL Glucose (74-99) mg/dL POC Glucose (mg/dL) 299 H (70-110) mg/dL Hemoglobin A1c 8.0 H (<=6.0) % Magnesium (1.6-2.3) mg/dL Urine Appearance (Clear) Urine Protein (Negative) Urine Glucose (UA) (Negative) Ur Leukocyte Esterase (Negative) Urine WBC (0-5) /hpf Urine WBC Clumps (None) /hpf Urine Bacteria (None) /hpf Hyaline Casts (0-2) /lpf Urine Mucus (None) /hpf 04/03/23 04/04/23 04/04/23 Range/Units 22:20 07:22 08:52 WBC (3.8-10.6) k/uL RBC (3.80-5.40) m/uL Hgb (11.4-16.0) gm/dL Hct (34.0-46.0) % MCV (80.0-100.0) fL Neutrophils # (1.3-7.7) k/uL VBG HCO3 (24-28) mmol/L Sodium (137-145) mmol/L Carbon Dioxide (22-30) mmol/L BUN (7-17) mg/dL Creatinine 1.24 H (0.52-1.04) mg/dL Glucose (74-99) mg/dL POC Glucose (mg/dL) 234 H 299 H (70-110) mg/dL Hemoglobin A1c (<=6.0) % Magnesium (1.6-2.3) mg/dL Urine Appearance (Clear) Urine Protein (Negative) Urine Glucose (UA) (Negative) Ur Leukocyte Esterase (Negative) Urine WBC (0-5) /hpf Urine WBC Clumps (None) /hpf Urine Bacteria (None) /hpf Hyaline Casts (0-2) /lpf Urine Mucus (None) /hpf 04/04/23 04/04/23 Range/Units 11:51 12:18 WBC (3.8-10.6) k/uL RBC (3.80-5.40) m/uL Hgb (11.4-16.0) gm/dL Hct (34.0-46.0) % MCV (80.0-100.0) fL Neutrophils # (1.3-7.7) k/uL VBG HCO3 (24-28) mmol/L Sodium (137-145) mmol/L Carbon Dioxide (22-30) mmol/L BUN (7-17) mg/dL Creatinine (0.52-1.04) mg/dL Glucose (74-99) mg/dL POC Glucose (mg/dL) 244 H 232 H (70-110) mg/dL Hemoglobin A1c (<=6.0) % Magnesium (1.6-2.3) mg/dL Urine Appearance (Clear) Urine Protein (Negative) Urine Glucose (UA) (Negative) Ur Leukocyte Esterase (Negative) Urine WBC (0-5) /hpf Urine WBC Clumps (None) /hpf Urine Bacteria (None) /hpf Hyaline Casts (0-2) /lpf Urine Mucus (None) /hpf Assessment and Plan Plan: 1patient was in the hospital with sepsis in this patient who did have a fever tachycardia elevated white count source is likely right-sided pyonephritis likely from enteric gram-negative pathogen 2-antibiotics will be adjusted to cefepime 2 g every 8 hours while waiting for the culture to finalize 3-gentle IV fluid We will follow on clinical condition and cultures to further adjust medication if needed Thank you for this consultation we will follow the patient along with you Dictation was produced using [employer] dictation software. please excuse any grammatical, word or spelling errors. Time with Patient: Greater than 30
[2023-04-05] MEDS: SODIUM CHLORIDE 0.9% 500 ML 500 ML IV SCH (08:25)
[2023-04-05] MEDS: atenoloL 25 MG TAB PO SCH (09:29)
[2023-04-05] MEDS: FOLIC ACID 1 MG TAB PO SCH (09:29)
[2023-04-05] MEDS: HEPARIN SODIUM,PORCINE 5,000 UNIT/ML 1 ML VIAL SQ SCH ×2 (09:29→19:50)
[2023-04-05] MEDS: ACETAMINOPHEN TAB 325 MG TAB PO PRN ×2 (09:30→19:49)
[2023-04-05] MEDS: buPROPion SR 150 MG TABLET.ER PO SCH (09:30)
[2023-04-05] MEDS: SERTRALINE 100 MG TAB PO SCH (09:30)
[2023-04-05] MEDS: CEFEPIME 2 GM in SODIUM CHLORIDE 0.9% 100 ML IVPB SCH ×2 (09:30→19:50)
[2023-04-05 11:38] LABS: Glucose,Whole Blood 121 mg/dL (70-110)
--- NOTE | 2023-04-05 13:19 | XR ---
EXAMINATION TYPE: XR chest 1V portable DATE OF EXAM: 04/05/2023 COMPARISON: NONE HISTORY: This of breath. TECHNIQUE: Single frontal view of the chest is obtained. IMPRESSION: The cardiac silhouette is mildly enlarged and there is diffuse patchy interstitial and airspace teran es throughout the lungs bilaterally which is likely related to mild edema. A superimposed infection o r infection is difficult to exclude as well. Pedicle correlation recommended.
[2023-04-05 17:02] LABS: Glucose,Whole Blood 228 mg/dL (70-110)
[2023-04-05] MEDS ORDERED: LORazepam 2 MG/ML INJ IV ONE (19:54)
[2023-04-05] MEDS ORDERED: LORazepam 2 MG/ML INJ IV PRN (19:55)
[2023-04-05 20:25] LABS: Basophils % (A) 0 %; Eosinophils # (A) 0.4 k/uL (0-0.7); Eosinophils % (A) 3 %; HCT 27.9 % (34.0-46.0); HGB 9.5 gm/dL (11.4-16.0); Lymphocytes # (A) 1.4 k/uL (1.0-4.8); Lymphocytes % (A) 10 %; MCH 33.5 pg (25.0-35.0); MCV 98.7 fL (80.0-100.0); Mean Platelet Volume 7.6; Monocytes # (A) 0.8 k/uL (0-1.0); Monocytes % (A) 5 %; Neutrophils # (A) 11.1 k/uL (1.3-7.7); Neutrophils % (A) 80 %; Platelet Count 303 k/uL (150-450); RBC 2.83 m/uL (3.80-5.40); RDW 15.1 % (11.5-15.5)
[2023-04-05 20:39] LABS: African American GFR (CKD) 50 (>60 ml/min/1.73 sqM); Anion Gap 13 mmol/L; Blood Urea Nitrogen 26 mg/dL (7-17); Carbon Dioxide 19 mmol/L (22-30); Chloride 104 mmol/L (98-107); Glucose 81 mg/dL (74-99); Non-African American GFR(CKD) 43 (>60 ml/min/1.73 sqM); Potassium 4.1 mmol/L (3.5-5.1); Sodium 136 mmol/L (137-145)
[2023-04-05 20:49] LABS: Glucose,Whole Blood 96 mg/dL (70-110)
[2023-04-06] MEDS: ACETAMINOPHEN TAB 325 MG TAB PO PRN ×3 (02:26→20:26)
[2023-04-06] MEDS: LORazepam 2 MG/ML INJ IV PRN ×4 (02:27→20:26)
[2023-04-06] MEDS: SODIUM CHLORIDE 0.9% 500 ML 500 ML IV SCH (05:11)
--- NOTE | 2023-04-06 05:35 | P.PN ---
Subjective Progress Note Date: 04/05/23 67-year-old female came in for fever hyperglycemia. Patient is at [facility] her last drink was 1415 days ago patient is shaking quite a bit. Patient does have history of from her arthritis. Patient denied any cough denied any dysuria patient is comparing of the right flank pain moderate pain CT of the abdomen did show some possible pyelonephritis versus some pancreatitis in the tail of the pancreas. Lipase is not available which will be ordered, UA did show a white blood cell counseling and. Blood cultures were obtain patient had a fever of 103 COVID-19 influenza and RSV are negative. Patient main complaint is excessive shaking and patient complains a she has anxiety. 04/05/2023 Patient is seen and evaluated follow-up today reports having continued shaking and is maintained on antibiotics with infectious disease following with concerns of pyelonephritis. Urine culture preliminary showing gram-negative bacilli and blood cultures thus far are negative. Patient is febrile and having continued shaking and reports to feeling unwell. Patient also has decreased appetite and thin build will add Glucerna and encouraged oral intake. Patient also requiring increased oxygen demand currently on 10 L and did receive fluids we'll obtain a chest x-ray. Patient denies shortness of breath although pulse ox readings per nursing staff drop down to low 80s. A.m. labs currently pending Review of systems: Constitutional: No reports of fatigue, reports of fever and chills Cardiovascular: No reports of chest pain or palpitations Respiratory: No reports of shortness of breath or cough GI: No reports of nausea, vomiting, or diarrhea, reports not much of an appetite : No reports of dysuria or retention Neurovascular: reports of generalized weakness All medications have been reviewed PHYSICAL EXAMINATION: GENERAL: The patient is alert and oriented x3, not in any acute distress. Patient is shaking, thin built female, appears elderly HEENT: Pupils are round and equally reacting to light. EOMI. No scleral icterus. No conjunctival pallor. Normocephalic, atraumatic. No pharyngeal erythema. No thyromegaly. CARDIOVASCULAR: S1 and S2 present. No murmurs, rubs, or gallops. PULMONARY: Diminished breath sounds bilaterally otherwise Chest is clear to auscultation, no wheezing or crackles. ABDOMEN: Soft, thin built. minimal right flank tenderness, nondistended, normoactive bowel sounds. No palpable organomegaly. MUSCULOSKELETAL: No joint swelling or deformity. EXTREMITIES: No cyanosis, clubbing, or pedal edema. NEUROLOGICAL: Gross neurological examination did not reveal any focal deficits. SKIN: No rashes. Assessment: -Sepsis: Secondary to urinary tract infection and pyelonephritis, present on admission, preliminary urine culture showing gram-negative bacilli -Excessive shaking multifactorial, secondary to anxiety and fever -Possibly pancreatitis as per the computed tomography scan of the abdomen, although suspicion is low. Lipase is normal at 47 -Hypertension history -Acute renal failure secondary to sepsis continue with IV fluids, possibly acute tubular necrosis -Hyperlipidemia -Peripheral neuropathy -Moderate protein calorie malnutrition with BMI of 18.3 -Type 2 diabetes mellitus uncontrolled with elevated blood sugars with sepsis -Hyperlipidemia -Rheumatoid arthritis history -Alcohol abuse history, presently from [facility], not having withdrawals as her last alcohol drink was 14 days ago, continue CIWA protocol -DVT prophylaxis: Subcutaneous heparin -GI prophylaxis -Full code Plan: Patient is continued on IV antibiotics with infectious disease following with acute urinary tract infection with pyelonephritis. Preliminary urine culture showing gram-negative bacilli and blood cultures thus far are negative Patient was given IV hydration overnight requiring increasing oxygen demands currently on 10 L does not normally wear any oxygen outpatient, will obtain a chest x-ray Patient having continued ongoing shaking which is multifactorial with concerns of possible alcohol withdrawal and CIWA protocol being placed as well as patient is febrile. Will add Tylenol and monitor for continued fevers Will add incentive spirometer and encourage to use at least 10 times every hour while awake Blood sugars are elevated with history of diabetes will continue Accu-Cheks before meals and at bedtime and sliding scale Repeat a.m. labs and replace electrolytes per protocol, monitor kidney functions Encourage increased activity as tolerated Patient not eating much and has no real appetite, encouraged oral intake and will add Glucerna supplements 3 times a day between meals Patient was at [facility] and will discuss further with case management/social work about discharge planning once patient has been cleared for discharge Awaiting finalized urine cultures with infectious disease following to determine appropriate antibiotics The impression and plan of care has been dictated by Mya Manley, Nurse Practitioner as directed. Dr. Eleno MD I have performed a history and examination and MDM of this patient, discussed the same with the dictator, and agree with the dictator's assessment and plan as written ,documented as a scribe. Based on total visit time, I have performed more than 50% of the visit. Objective - Vital Signs Vital signs: Vital Signs Temp 98.3 F 04/06/23 05:07 Pulse 113 H 04/06/23 00:38 Resp 18 04/06/23 00:38 BP 156/91 04/06/23 00:38 Pulse Ox 93 L 04/06/23 00:38 FiO2 Intake & Output 04/05/23 04/05/23 04/06/23 06:59 18:59 06:59 Intake Total 100 Output Total 400 700 Balance -400 -600 Weight 45.359 kg Intake: Intake, IV Titration 100 Amount Cefepime 2 gm In Sodium 100 Chloride 0.9% 100 ml @ 25 mls/hr IVPB Q12HR [facility] Rx #:[id number] Output: Urine 400 700 Other: Voiding Method External Catheter External Catheter External Catheter # Voids 2 - Labs CBC & Chem 7: 04/05/23 20:13 04/05/23 20:13 Labs: Abnormal Lab Results - Last 24 Hours (Table) 04/05/23 04/05/23 04/05/23 Range/Units 05:30 11:36 16:58 WBC (3.8-10.6) k/uL RBC (3.80-5.40) m/uL Hgb (11.4-16.0) gm/dL Hct (34.0-46.0) % Neutrophils # (1.3-7.7) k/uL Sodium (137-145) mmol/L Carbon Dioxide (22-30) mmol/L BUN (7-17) mg/dL Creatinine (0.52-1.04) mg/dL POC Glucose (mg/dL) 112 H 121 H 228 H (70-110) mg/dL 04/05/23 04/05/23 Range/Units 20:13 20:13 WBC 14.0 H (3.8-10.6) k/uL RBC 2.83 L (3.80-5.40) m/uL Hgb 9.5 L (11.4-16.0) gm/dL Hct 27.9 L (34.0-46.0) % Neutrophils # 11.1 H (1.3-7.7) k/uL Sodium 136 L (137-145) mmol/L Carbon Dioxide 19 L (22-30) mmol/L BUN 26 H (7-17) mg/dL Creatinine 1.28 H (0.52-1.04) mg/dL POC Glucose (mg/dL) (70-110) mg/dL Microbiology - Last 24 Hours (Table) 04/03/23 21:45 Blood Culture - Preliminary Blood 04/03/23 22:00 Blood Culture - Preliminary Blood 04/03/23 18:03 Urine Culture - Preliminary Urine,Clean Catch Gram Neg Bacilli
[2023-04-06 06:33] LABS: Glucose,Whole Blood 333 mg/dL (70-110)
[2023-04-06] MEDS: INSULIN ASPART (NovoLOG) 100 UNIT/ML VIAL SQ SCH ×4 (07:16→21:06)
[2023-04-06] MEDS: atenoloL 25 MG TAB PO SCH (09:30)
[2023-04-06] MEDS: FOLIC ACID 1 MG TAB PO SCH (09:30)
[2023-04-06] MEDS: THIAMINE 100 MG TAB PO SCH (09:30)
[2023-04-06] MEDS: SERTRALINE 100 MG TAB PO SCH (09:30)
[2023-04-06] MEDS: CEFEPIME 2 GM in SODIUM CHLORIDE 0.9% 100 ML IVPB SCH (09:31)
[2023-04-06] MEDS: HEPARIN SODIUM,PORCINE 5,000 UNIT/ML 1 ML VIAL SQ SCH ×2 (09:31→21:03)
[2023-04-06] MEDS: buPROPion SR 150 MG TABLET.ER PO SCH (09:39)
[2023-04-06 11:09] LABS: Basophils # (A) 0.05 X 10*3/uL (0.00-0.10); Basophils % (A) 0.4 %; Eosinophils % (A) 2.5 %; HCT 26.9 % (37.2-46.3); HGB 8.9 g/dL (12.0-15.0); Lymphocytes # (A) 1.22 X 10*3/uL (0.90-5.00); MCH 32.6 pg (27.0-32.0); MCHC 33.1 g/dL (32.0-37.0); MCV 98.5 FL (80.0-97.0); Mean Platelet Volume 10.9 FL (9.5-12.2); Monocytes # (A) 1.36 X 10*3/uL (0.20-1.00); Monocytes % (A) 11.1 %; NRBC Per 100 WBC 0 X 10*3/uL (0.00-0.01); Neutrophils # (A) 9.17 X 10*3/uL (1.80-7.70); Neutrophils % (A) 75.2 %; Platelet Count 222 X 10*3/uL (140-440); RBC 2.73 X 10*6/uL (4.10-5.20); RDW 15.4 % (11.5-14.5)
[2023-04-06 11:21] LABS: Glucose,Whole Blood 90 mg/dL (70-110)
[2023-04-06 12:09] LABS: BUN/Creat Ratio 15.57 Ratio (12.00-20.00); Blood Urea Nitrogen 21.8 mg/dL (9.0-27.0); Calcium 9.2 mg/dL (8.7-10.3); Carbon Dioxide 17.8 mmol/L (21.6-31.8); Chloride 103 mmol/L (96-109); Glucose 113 mg/dL (70-110); Magnesium 1.6 mg/dL (1.5-2.4); Potassium 4.3 mmol/L (3.5-5.5); Sodium 137 mmol/L (135-145)
[2023-04-06 13:48] VITALS: BMI 18.3
[2023-04-06 16:46] LABS: Glucose,Whole Blood 129 mg/dL (70-110)
--- NOTE | 2023-04-06 16:47 | P.PN ---
Subjective Progress Note Date: 04/05/23 Principal diagnosis: Reason for follow-up is sepsis and pyelonephritis Patient is a 67-year-old female with a past medical significant for diabetes mellitus hypertension hyperlipidemia rheumatoid arthritis patient presented to the hospital yesterday for evaluation of fever and elevated blood sugar, patient has been adequately nose with a right-sided pyelonephritis On today's evaluation that is 04/05/2023, the patient remains to be febrile with a T-max of 102F, the patient is breathing comfortably however is requiring high flow nasal cannula oxygen. The patient denies having any shortness of breath no chest pain or cough, patient denies Abdominal pain, no nausea/vomiting or diarrhea Patient white count is down to 14,000, creatinine 1.28 Objective - Vital Signs Vital signs: Vital Signs Temp 101.5 F H 04/05/23 07:09 Pulse 108 H 04/05/23 07:09 Resp 18 04/05/23 07:09 BP 137/85 04/05/23 07:09 Pulse Ox 97 04/05/23 07:09 FiO2 Intake & Output 04/04/23 04/05/23 04/05/23 18:59 06:59 18:59 Output Total 400 Balance -400 Weight 45.359 kg Output: Urine 400 Other: Voiding Method External Catheter - Exam GENERAL DESCRIPTION: An elderly female lying in bed in no distress RESPIRATORY SYSTEM: Unlabored breathing , decreased breath sound at the base HEART: S1 S2 regular rate and rhythm , ABDOMEN: Soft , no tenderness EXTREMITIES: No edema feet - Labs CBC & Chem 7: 04/06/23 06:38 04/06/23 06:38 Labs: Abnormal Lab Results - Last 24 Hours (Table) 04/04/23 04/05/23 04/05/23 Range/Units 20:34 05:30 11:36 POC Glucose (mg/dL) 160 H 112 H 121 H (70-110) mg/dL Microbiology - Last 24 Hours (Table) 04/03/23 18:03 Urine Culture - Preliminary Urine,Clean Catch Gram Neg Bacilli 04/03/23 21:45 Blood Culture - Preliminary Blood 04/03/23 22:00 Blood Culture - Preliminary Blood Assessment and Plan (1) Pyelonephritis Current Visit: Yes Status: Acute Code(s): N12 - TUBULO-INTERSTITIAL NEPHRITIS, NOT SPCF ACUTE OR CHRONIC SNOMED Code(s): 43018457 (2) Sepsis Current Visit: Yes Status: Acute Code(s): A41.9 - SEPSIS, UNSPECIFIED ORGANISM SNOMED Code(s): 05012640 Plan: 1patient was in the hospital with sepsis in this patient who did have a fever tachycardia elevated white count source is likely right-sided pyonephritis likely from enteric gram-negative pathogen 2Patient to continue with cefepime 2 g every 8 hours while waiting for the culture to finalize and monitor clinical course closely Dictation was produced using [employer] dictation software. please excuse any grammatical, word or spelling errors. Time with Patient: Less than 30
--- NOTE | 2023-04-06 16:49 | P.PN ---
Subjective Progress Note Date: 04/06/23 Principal diagnosis: Reason for follow-up is sepsis and pyelonephritis Patient is a 67-year-old female with a past medical significant for diabetes mellitus hypertension hyperlipidemia rheumatoid arthritis patient presented to the hospital yesterday for evaluation of fever and elevated blood sugar, patient has been adequately nose with a right-sided pyelonephritis On today's evaluation that is 04/06/2023, the patient denies any fever or any chills, the patient is requiring 10 L high flow oxygen however denies any shortness of breath, the patient denies any chest pain, no cough or sputum production, patient denies nausea/vomiting /diarrhea and no abdominal pain Patient white count is down to 12.20, creatinine is 1.4, urine culture with E. coli that is sensitive pathogen blood culture negative Objective - Vital Signs Vital signs: Vital Signs Temp 99.6 F 04/06/23 07:06 Pulse 74 04/06/23 07:06 Resp 18 04/06/23 07:06 BP 151/96 04/06/23 07:06 Pulse Ox 98 04/06/23 07:06 FiO2 Intake & Output 04/05/23 04/06/23 04/06/23 18:59 06:59 18:59 Intake Total 100 340 Output Total 700 700 Balance -600 -360 Intake: Intake, IV Titration 100 340 Amount Cefepime 2 gm In Sodium 100 100 Chloride 0.9% 100 ml @ 25 mls/hr IVPB Q12HR [facility] Rx #:[id number] Sodium Chloride 0.9% 500 240 ml 500 ml @ 20 mls/hr IV .Q24H [facility] Rx#:[id number] Output: Urine 700 700 Other: Voiding Method External Catheter External Catheter # Voids 2 - Exam GENERAL DESCRIPTION: An elderly female lying in bed in no distress RESPIRATORY SYSTEM: Unlabored breathing , decreased breath sound at the base HEART: S1 S2 regular rate and rhythm , ABDOMEN: Soft , no tenderness EXTREMITIES: No edema feet - Labs CBC & Chem 7: 04/06/23 06:38 04/06/23 06:38 Labs: Abnormal Lab Results - Last 24 Hours (Table) 04/05/23 04/05/23 04/05/23 Range/Units 11:36 16:58 20:13 WBC 14.0 H (3.8-10.6) k/uL RBC 2.83 L (3.80-5.40) m/uL Hgb 9.5 L (11.4-16.0) gm/dL Hct 27.9 L (34.0-46.0) % Neutrophils # 11.1 H (1.3-7.7) k/uL Sodium (137-145) mmol/L Carbon Dioxide (22-30) mmol/L BUN (7-17) mg/dL Creatinine (0.52-1.04) mg/dL POC Glucose (mg/dL) 121 H 228 H (70-110) mg/dL 04/05/23 04/06/23 Range/Units 20:13 06:30 WBC (3.8-10.6) k/uL RBC (3.80-5.40) m/uL Hgb (11.4-16.0) gm/dL Hct (34.0-46.0) % Neutrophils # (1.3-7.7) k/uL Sodium 136 L (137-145) mmol/L Carbon Dioxide 19 L (22-30) mmol/L BUN 26 H (7-17) mg/dL Creatinine 1.28 H (0.52-1.04) mg/dL POC Glucose (mg/dL) 333 H (70-110) mg/dL Microbiology - Last 24 Hours (Table) 04/03/23 21:45 Blood Culture - Preliminary Blood 04/03/23 22:00 Blood Culture - Preliminary Blood 04/03/23 18:03 Urine Culture - Preliminary Urine,Clean Catch Gram Neg Bacilli Assessment and Plan (1) Pyelonephritis Current Visit: Yes Status: Acute Code(s): N12 - TUBULO-INTERSTITIAL NEPHRITIS, NOT SPCF ACUTE OR CHRONIC SNOMED Code(s): 73491103 (2) Sepsis Current Visit: Yes Status: Acute Code(s): A41.9 - SEPSIS, UNSPECIFIED ORGANISM SNOMED Code(s): 26438223 Plan: 1patient was in the hospital with sepsis in this patient who did have a fever tachycardia elevated white count source is likely right-sided pyonephritis likely from enteric gram-negative pathogen, urine has been finalized with E. coli that is sensitive pathogen 2we will discontinue cefepime start the patient on Rocephin 2 g daily and monitor clinical course closely Dictation was produced using [employer] software. please excuse any grammatical, word or spelling errors. Time with Patient: Less than 30
[2023-04-06] MEDS: HYDROcodone/APAP 5-325MG 1 EACH TAB PO PRN (18:34)
[2023-04-06 20:09] LABS: Glucose,Whole Blood 101 mg/dL (70-110)
[2023-04-06] MEDS: ATORVASTATIN 20 MG TAB PO SCH (21:03)
[2023-04-06] MEDS: traZODone HCL 50 MG TAB PO PRN (23:50)
[2023-04-07] MEDS: SODIUM CHLORIDE 0.9% 500 ML 500 ML IV SCH (02:25)
[2023-04-07] MEDS ORDERED: MAGNESIUM SULFATE-D5W PMX 1 GM in DEXTROSE/WATER 1 100ML.BAG IVPB ONE (04:30)
[2023-04-07] MEDS ORDERED: Magnesium Replacement Protocol 1 EACH MISC MISCELLANE PRN (04:30)
[2023-04-07] MEDS ORDERED: LOPERAMIDE 2 MG CAP PO PRN (04:31)
--- NOTE | 2023-04-07 04:39 | P.PN ---
Subjective Progress Note Date: 04/07/23 67-year-old female came in for fever hyperglycemia. Patient is at [place] her last drink was 1415 days ago patient is shaking quite a bit. Patient does have history of from her arthritis. Patient denied any cough denied any dysuria patient is comparing of the right flank pain moderate pain CT of the abdomen did show some possible pyelonephritis versus some pancreatitis in the tail of the pancreas. Lipase is not available which will be ordered, UA did show a white blood cell counseling and. Blood cultures were obtain patient had a fever of 103 COVID-19 influenza and RSV are negative. Patient main complaint is excessive shaking and patient complains a she has anxiety. 04/05/2023 Patient is seen and evaluated follow-up today reports having continued shaking and is maintained on antibiotics with infectious disease following with concerns of pyelonephritis. Urine culture preliminary showing gram-negative bacilli and blood cultures thus far are negative. Patient is febrile and having continued shaking and reports to feeling unwell. Patient also has decreased appetite and thin build will add Glucerna and encouraged oral intake. Patient also requiring increased oxygen demand currently on 10 L and did receive fluids we'll obtain a chest x-ray. Patient denies shortness of breath although pulse ox readings per nursing staff drop down to low 80s. A.m. labs currently pending 04/06/2023 Patient is seen in follow-up today and oxygen saturations have improved and patient is being weaned slowly off oxygen as tolerated. Patient is shaking with mild improvement being maintained on antibiotics with infectious disease following recent UTI with pyelonephritis. Blood cultures are pending and preliminary urine showing gram-negative bacilli awaiting finalized cultures. Patient having low-grade temps recommend to continue Tylenol. Patient had a episodes of diarrhea and will obtain a C. diff to rule out although suspicion is low and will add Imodium as needed is negative. Patient reports tolerating diet and continues with not much of an appetite. Patient encouraged to increase activity as tolerated and will have physical therapy evaluate the patient. CBC is trending down and magnesium is slightly low and will replace. Review of systems: Constitutional: No reports of fatigue, reports of fever and chills Cardiovascular: No reports of chest pain or palpitations Respiratory: No reports of shortness of breath or cough GI: No reports of nausea, vomiting, reports episodes of diarrhea, reports not much of an appetite : No reports of dysuria or retention Neurovascular: reports of generalized weakness All medications have been reviewed PHYSICAL EXAMINATION: GENERAL: The patient is alert and oriented x3, not in any acute distress. Patient is shaking, thin built female, appears elderly HEENT: Pupils are round and equally reacting to light. EOMI. No scleral icterus. No conjunctival pallor. Normocephalic, atraumatic. No pharyngeal erythema. No thyromegaly. CARDIOVASCULAR: S1 and S2 present. No murmurs, rubs, or gallops. PULMONARY: Diminished breath sounds bilaterally otherwise Chest is clear to auscultation, no wheezing or crackles. ABDOMEN: Soft, thin built. minimal right flank tenderness, nondistended, normoactive bowel sounds. No palpable organomegaly. MUSCULOSKELETAL: No joint swelling or deformity. EXTREMITIES: No cyanosis, clubbing, or pedal edema. NEUROLOGICAL: Gross neurological examination did not reveal any focal deficits. Diffusely weak SKIN: No rashes. Assessment: -Sepsis: Secondary to urinary tract infection and pyelonephritis, present on admission, culture showing E. coli with some sensitivities -Excessive shaking multifactorial, secondary to anxiety and fever -Possibly pancreatitis as per the computed tomography scan of the abdomen, although suspicion is low. Lipase is normal at 47 -Hypertension history -Acute renal failure secondary to sepsis continue with IV fluids, acute tubular necrosis -Diarrhea, rule out C. diff -Hyperlipidemia -Peripheral neuropathy -Moderate protein calorie malnutrition with BMI of 18.3 -Type 2 diabetes mellitus uncontrolled with elevated blood sugars with sepsis -Hyperlipidemia -Rheumatoid arthritis history -Alcohol abuse history, presently from [place], not having withdrawals as her last alcohol drink was 14 days ago, continue [facility] protocol -DVT prophylaxis: Subcutaneous heparin -GI prophylaxis -Full code Plan: Patient is continued on IV antibiotics with infectious disease following with acute urinary tract infection with pyelonephritis. Cultures finalized on the urine with E. coli with sensitivities and being transitioned to ceftriaxone per ID recommendations Patient having multiple episodes of diarrhea will obtain a C. diff to rule out and will add Imodium as needed if negative Patient to continue gentle IV hydration Oxygen being titrated down this patient is 98% on 10 L, currently down to 6 L and will wean as tolerated. Encouraged incentive spirometer use at least 10 times every hour while awake Patient having continued ongoing shaking although somewhat improved which is multifactorial with concerns of possible alcohol withdrawal although last drink was 13 days ago, most likely secondary to fevers ongoing as well as anxiety Continue monitoring Blood sugars with Accu-Cheks before meals and at bedtime and sliding scale Repeat a.m. labs and replace electrolytes per protocol, magnesium low and will replace, CBC is trending down Encourage increased activity as tolerated. Will have physical therapy evaluate the patient Patient not eating much and has no real appetite, encouraged oral intake and will add Glucerna supplements 3 times a day between meals Patient was at [place] and will discuss further with case management/social work about discharge planning once patient has been cleared for discharge The impression and plan of care has been dictated by Mya Manley, Nurse Practitioner as directed. Dr. Eleno MD I have performed a history and examination and MDM of this patient, discussed the same with the dictator, and agree with the dictator's assessment and plan as written ,documented as a scribe. Based on total visit time, I have performed more than 50% of the visit. Objective - Vital Signs Vital signs: Vital Signs Temp 98.7 F 04/07/23 00:46 Pulse 81 04/07/23 00:46 Resp 18 04/07/23 00:46 BP 123/71 04/07/23 00:46 Pulse Ox 100 04/07/23 00:46 FiO2 Intake & Output 04/06/23 04/06/23 04/07/23 06:59 18:59 06:59 Intake Total 340 Output Total 700 Balance -360 Weight 45.359 kg Intake: Intake, IV Titration 340 Amount Cefepime 2 gm In Sodium 100 Chloride 0.9% 100 ml @ 25 mls/hr IVPB Q12HR [facility] Rx #:[id number] Sodium Chloride 0.9% 500 240 ml 500 ml @ 20 mls/hr IV .Q24H [facility] Rx#:[id number] Output: Urine 700 Other: Voiding Method External Catheter External Catheter Bedside Commode External Catheter # Voids 2 5 # Bowel Movements 4 - Labs CBC & Chem 7: 04/06/23 06:38 04/06/23 06:38 Labs: Abnormal Lab Results - Last 24 Hours (Table) 04/06/23 04/06/23 04/06/23 Range/Units 06:30 06:38 06:38 WBC 12.20 H (4.50-10.00) X 10*3/uL RBC 2.73 L (4.10-5.20) X 10*6/uL Hgb 8.9 L (12.0-15.0) g/dL Hct 26.9 L (37.2-46.3) % MCV 98.5 H (80.0-97.0) FL MCH 32.6 H (27.0-32.0) pg RDW 15.4 H (11.5-14.5) % Neutrophils # 9.17 H (1.80-7.70) X 10*3/uL Monocytes # 1.36 H (0.20-1.00) X 10*3/uL Carbon Dioxide 17.8 L (21.6-31.8) mmol/L Anion Gap 16.20 H (4.00-12.00) mmol/L Est GFR (CKD-EPI) 41 L (>=60) Glucose 113 H (70-110) mg/dL POC Glucose (mg/dL) 333 H (70-110) mg/dL 04/06/23 Range/Units 16:44 WBC (4.50-10.00) X 10*3/uL RBC (4.10-5.20) X 10*6/uL Hgb (12.0-15.0) g/dL Hct (37.2-46.3) % MCV (80.0-97.0) FL MCH (27.0-32.0) pg RDW (11.5-14.5) % Neutrophils # (1.80-7.70) X 10*3/uL Monocytes # (0.20-1.00) X 10*3/uL Carbon Dioxide (21.6-31.8) mmol/L Anion Gap (4.00-12.00) mmol/L Est GFR (CKD-EPI) (>=60) Glucose (70-110) mg/dL POC Glucose (mg/dL) 129 H (70-110) mg/dL Microbiology - Last 24 Hours (Table) 04/03/23 18:03 Urine Culture - Final Urine,Clean Catch Escherichia coli 04/03/23 21:45 Blood Culture - Preliminary Blood 04/03/23 22:00 Blood Culture - Preliminary Blood
[2023-04-07] MEDS: ACETAMINOPHEN TAB 325 MG TAB PO PRN ×2 (05:08→23:42)
[2023-04-07 06:19] LABS: Glucose,Whole Blood 143 mg/dL (70-110)
[2023-04-07] MEDS: INSULIN ASPART (NovoLOG) 100 UNIT/ML VIAL SQ SCH ×4 (06:45→22:29)
[2023-04-07] MEDS: buPROPion SR 150 MG TABLET.ER PO SCH (08:33)
[2023-04-07] MEDS: SERTRALINE 100 MG TAB PO SCH (08:33)
[2023-04-07] MEDS: FOLIC ACID 1 MG TAB PO SCH (08:33)
[2023-04-07] MEDS: atenoloL 25 MG TAB PO SCH (08:33)
[2023-04-07] MEDS: THIAMINE 100 MG TAB PO SCH (08:33)
[2023-04-07] MEDS: HEPARIN SODIUM,PORCINE 5,000 UNIT/ML 1 ML VIAL SQ SCH ×2 (08:33→22:28)
[2023-04-07 11:30] LABS: Glucose,Whole Blood 140 mg/dL (70-110)
[2023-04-07] MEDS: GABAPENTIN 100 MG CAP PO PRN ×2 (11:50→22:28)
[2023-04-07] MEDS: HYDROcodone/APAP 5-325MG 1 EACH TAB PO PRN ×2 (13:15→17:12)
[2023-04-07 14:51] LABS: Basophils % (A) 0 %; Eosinophils # (A) 0.4 k/uL (0-0.7); Eosinophils % (A) 3 %; HCT 30.2 % (34.0-46.0); HGB 10.4 gm/dL (11.4-16.0); Lymphocytes # (A) 1.2 k/uL (1.0-4.8); Lymphocytes % (A) 12 %; MCH 33.8 pg (25.0-35.0); MCHC 34.4 g/dL (31.0-37.0); MCV 98.2 fL (80.0-100.0); Mean Platelet Volume 7.9; Monocytes # (A) 0.6 k/uL (0-1.0); Monocytes % (A) 6 %; Neutrophils % (A) 76 %; Platelet Count 463 k/uL (150-450); RBC 3.08 m/uL (3.80-5.40); WBC 10.5 k/uL (3.8-10.6)
[2023-04-07 15:01] LABS: African American GFR (CKD) 58 (>60 ml/min/1.73 sqM); Anion Gap 15 mmol/L; Blood Urea Nitrogen 18 mg/dL (7-17); Calcium 9.5 mg/dL (8.4-10.2); Carbon Dioxide 19 mmol/L (22-30); Chloride 104 mmol/L (98-107); Glucose 184 mg/dL (74-99); Non-African American GFR(CKD) 50 (>60 ml/min/1.73 sqM); Potassium 4.1 mmol/L (3.5-5.1); Sodium 138 mmol/L (137-145)
--- NOTE | 2023-04-07 16:12 | P.PN ---
Subjective Progress Note Date: 04/07/23 67-year-old female came in for fever hyperglycemia. Patient is at [place] her last drink was 1415 days ago patient is shaking quite a bit. Patient does have history of from her arthritis. Patient denied any cough denied any dysuria patient is comparing of the right flank pain moderate pain CT of the abdomen did show some possible pyelonephritis versus some pancreatitis in the tail of the pancreas. Lipase is not available which will be ordered, UA did show a white blood cell counseling and. Blood cultures were obtain patient had a fever of 103 COVID-19 influenza and RSV are negative. Patient main complaint is excessive shaking and patient complains a she has anxiety. 04/05/2023 Patient is seen and evaluated follow-up today reports having continued shaking and is maintained on antibiotics with infectious disease following with concerns of pyelonephritis. Urine culture preliminary showing gram-negative bacilli and blood cultures thus far are negative. Patient is febrile and having continued shaking and reports to feeling unwell. Patient also has decreased appetite and thin build will add Glucerna and encouraged oral intake. Patient also requiring increased oxygen demand currently on 10 L and did receive fluids we'll obtain a chest x-ray. Patient denies shortness of breath although pulse ox readings per nursing staff drop down to low 80s. A.m. labs currently pending 04/06/2023 Patient is seen in follow-up today and oxygen saturations have improved and patient is being weaned slowly off oxygen as tolerated. Patient is shaking with mild improvement being maintained on antibiotics with infectious disease following recent UTI with pyelonephritis. Blood cultures are pending and preliminary urine showing gram-negative bacilli awaiting finalized cultures. Patient having low-grade temps recommend to continue Tylenol. Patient had a episodes of diarrhea and will obtain a C. diff to rule out although suspicion is low and will add Imodium as needed is negative. Patient reports tolerating diet and continues with not much of an appetite. Patient encouraged to increase activity as tolerated and will have physical therapy evaluate the patient. CBC is trending down and magnesium is slightly low and will replace. 04/07/2023 Patient is seen in follow-up this morning weaning off FiO2 and down to 4 L at 100% and does not normally wear oxygen outpatient recommend weaning as tolerated and continuing with incentive spirometer use. Labs reviewed today reveal a normal white count and kidney functions are improvement with a creatinine of 1.13 today. Patient reports improvement in diarrhea as she was having multiple episodes yesterday. When necessary Imodium ordered a C. diff order was obtained although uncollected at this time. Finalized urine cultures show E. coli with sensitivities with infectious disease following maintained on ceftriaxone and blood cultures remain negative. Patient was seen and evaluated by physical therapy recommending rehab and awaiting a reevaluation as patient would still like to go home and does not want to go to rehab. Patient does not want to return to [place] as well. [place] was notified and would not be able to accommodate the patient if she were to return with oxygen. Patient has remained afebrile and have encouraged the patient oral intake and increased activity as tolerated. No reports of chest pain or shortness of breath. Patient denies nausea or vomiting and tolerating diet. Review of systems: Constitutional: No reports of fatigue, no reports of fever and chills Cardiovascular: No reports of chest pain or palpitations Respiratory: No reports of shortness of breath or cough GI: No reports of nausea, vomiting, reports episodes of diarrhea yesterday that have improved, reports not much of an appetite but is attempting to increase oral intake : No reports of dysuria or retention Neurovascular: reports of generalized weakness All medications have been reviewed PHYSICAL EXAMINATION: GENERAL: The patient is alert and oriented x3, not in any acute distress. Patient is not shaking today, thin built female, appears elderly HEENT: Pupils are round and equally reacting to light. EOMI. No scleral icterus. No conjunctival pallor. Normocephalic, atraumatic. No pharyngeal erythema. No thyromegaly. CARDIOVASCULAR: S1 and S2 present. No murmurs, rubs, or gallops. PULMONARY: Diminished breath sounds bilaterally otherwise Chest is clear to auscultation, no wheezing or crackles. ABDOMEN: Soft, thin built. minimal right flank tenderness as well as some left sided flank tenderness, nondistended, normoactive bowel sounds. No palpable organomegaly. MUSCULOSKELETAL: No joint swelling or deformity. EXTREMITIES: No cyanosis, clubbing, or pedal edema. NEUROLOGICAL: Gross neurological examination did not reveal any focal deficits. Diffusely weak SKIN: No rashes. Assessment: -Sepsis: Secondary to urinary tract infection and pyelonephritis, present on admission, culture showing E. coli with some sensitivities -Excessive shaking multifactorial, secondary to anxiety and fever, improved and patient is afebrile -Possibly pancreatitis as per the computed tomography scan of the abdomen, although suspicion is low. Lipase is normal at 47. Ruled out pancreatitis -Hypertension history -Acute renal failure secondary to sepsis continue with IV fluids, acute tubular necrosis, improving -Diarrhea, rule out C. diff -Hyperlipidemia -Peripheral neuropathy -Moderate protein calorie malnutrition with BMI of 18.3 -Type 2 diabetes mellitus uncontrolled with elevated blood sugars with sepsis -Hyperlipidemia -Rheumatoid arthritis history -Alcohol abuse history, presently from [place], not having withdrawals as her last alcohol drink was 14 days ago, continue [facility] protocol -DVT prophylaxis: Subcutaneous heparin -GI prophylaxis -Full code Plan: Patient is continued on IV antibiotics with infectious disease following with acute urinary tract infection with pyelonephritis. Cultures finalized on the urine with E. coli with sensitivities and being transitioned to ceftriaxone per ID recommendations Patient was having multiple episodes of diarrhea and attempting to obtain although no specimen provided. C. diff to rule out and continue Imodium as needed if negative Patient to continue gentle IV hydration . Kidney functions improving and and will follow-up with repeat labs Oxygen being titrated down this patient is 98% on 2 L, Encouraged incentive spirometer use at least 10 times every hour while awake. Case management following in the event patient may need home O2 evaluation Continue monitoring Blood sugars with Accu-Cheks before meals and at bedtime and sliding scale Repeat a.m. labs and replace electrolytes per protocol Encourage increased activity as tolerated. physical therapy evaluated the patient initially recommending rehab although patient does not really want to go and would like to return home. Physical therapy to reevaluate the patient this afternoon Patient not eating much and has no real appetite, encouraged oral intake and sintia l continue Glucerna supplements 3 times a day between meals Patient was at [place] and does not want to return there. Case management contacted [place] and they would be unable to accommodate the patient returning if she were to require oxygen Continue physical therapy daily. Will discuss further with patient and family about discharge planning once antibiotic recommendations are made with infectious disease. Possible discharge planning in the next 24-48 hours The impression and plan of care has been dictated by Mya Manley, Nurse Practitioner as directed. Dr. Eleno MD I have performed a history and examination and MDM of this patient, discussed the same with the dictator, and agree with the dictator's assessment and plan as written ,documented as a scribe. Based on total visit time, I have performed more than 50% of the visit. Objective - Vital Signs Vital signs: Vital Signs Temp 98.7 F 04/07/23 13:33 Pulse 94 04/07/23 13:33 Resp 18 04/07/23 13:33 BP 137/77 04/07/23 13:33 Pulse Ox 96 04/07/23 13:33 FiO2 Intake & Output 04/06/23 04/07/23 04/07/23 18:59 06:59 18:59 Output Total 500 Balance -500 Weight 45.359 kg Output: Urine 500 Other: Voiding Method External Catheter Bedside Commode Bedside Commode External Catheter External Catheter # Voids 5 # Bowel Movements 4 - Labs CBC & Chem 7: 04/07/23 14:31 04/07/23 14:31 Labs: Abnormal Lab Results - Last 24 Hours (Table) 04/06/23 04/07/23 04/07/23 Range/Units 16:44 06:17 11:29 RBC (3.80-5.40) m/uL Hgb (11.4-16.0) gm/dL Hct (34.0-46.0) % Plt Count (150-450) k/uL Neutrophils # (1.3-7.7) k/uL Carbon Dioxide (22-30) mmol/L BUN (7-17) mg/dL Creatinine (0.52-1.04) mg/dL Glucose (74-99) mg/dL POC Glucose (mg/dL) 129 H 143 H 140 H (70-110) mg/dL 04/07/23 04/07/23 Range/Units 14:31 14:31 RBC 3.08 L (3.80-5.40) m/uL Hgb 10.4 L (11.4-16.0) gm/dL Hct 30.2 L (34.0-46.0) % Plt Count 463 H (150-450) k/uL Neutrophils # 8.0 H (1.3-7.7) k/uL Carbon Dioxide 19 L (22-30) mmol/L BUN 18 H (7-17) mg/dL Creatinine 1.13 H (0.52-1.04) mg/dL Glucose 184 H (74-99) mg/dL POC Glucose (mg/dL) (70-110) mg/dL Microbiology - Last 24 Hours (Table) 04/03/23 21:45 Blood Culture - Preliminary Blood 04/03/23 22:00 Blood Culture - Preliminary Blood 04/03/23 18:03 Urine Culture - Final Urine,Clean Catch Escherichia coli
[2023-04-07 16:48] LABS: Glucose,Whole Blood 186 mg/dL (70-110)
--- NOTE | 2023-04-07 17:34 | P.PN ---
Subjective Progress Note Date: 04/07/23 Principal diagnosis: Reason for follow-up is sepsis and pyelonephritis Patient is a 67-year-old female with a past medical significant for diabetes mellitus hypertension hyperlipidemia rheumatoid arthritis patient presented to the hospital yesterday for evaluation of fever and elevated blood sugar, patient has been adequately nose with a right-sided pyelonephritis On today's evaluation that is 04/07/2023 the patient remains to be afebrile, the patient is breathing comfortably on 4 L nasal cannula oxygen. The patient denies shortness of breath denies any chest pain or cough, patient denies nausea/vomiting or diarrhea and no abdominal pain. Patient white count normalized to 10.5, creatinine is 1.13, urine culture with E. coli that is sensitive pathogen blood culture negative Objective - Vital Signs Vital signs: Vital Signs Temp 98.9 F 04/07/23 07:01 Pulse 84 04/07/23 08:33 Resp 18 04/07/23 08:33 BP 155/86 04/07/23 07:01 Pulse Ox 100 04/07/23 08:15 FiO2 Intake & Output 04/06/23 04/07/23 04/07/23 18:59 06:59 18:59 Output Total 500 Balance -500 Weight 45.359 kg Output: Urine 500 Other: Voiding Method External Catheter Bedside Commode Bedside Commode External Catheter External Catheter # Voids 5 # Bowel Movements 4 - Exam GENERAL DESCRIPTION: An elderly female lying in bed in no distress RESPIRATORY SYSTEM: Unlabored breathing , decreased breath sound at the base HEART: S1 S2 regular rate and rhythm , ABDOMEN: Soft , no tenderness EXTREMITIES: No edema feet - Labs CBC & Chem 7: 04/07/23 14:31 04/07/23 14:31 Labs: Abnormal Lab Results - Last 24 Hours (Table) 04/06/23 04/07/23 04/07/23 Range/Units 16:44 06:17 11:29 POC Glucose (mg/dL) 129 H 143 H 140 H (70-110) mg/dL Microbiology - Last 24 Hours (Table) 04/03/23 21:45 Blood Culture - Preliminary Blood 04/03/23 22:00 Blood Culture - Preliminary Blood 04/03/23 18:03 Urine Culture - Final Urine,Clean Catch Escherichia coli Assessment and Plan (1) Pyelonephritis Current Visit: Yes Status: Acute Code(s): N12 - TUBULO-INTERSTITIAL NEPHRITIS, NOT SPCF ACUTE OR CHRONIC SNOMED Code(s): 60325602 (2) Sepsis Current Visit: Yes Status: Acute Code(s): A41.9 - SEPSIS, UNSPECIFIED ORGANISM SNOMED Code(s): 35010897 Plan: 1patient was in the hospital with sepsis in this patient who did have a fever tachycardia elevated white count source is likely right-sided pyonephritis likel y from enteric gram-negative pathogen, urine has been finalized with E. coli that is sensitive pathogen 2patient to continue with Rocephin 2 g daily and plan to finish therapy with oral Ceftin 2 weeks Dictation was produced using [employer] dictation software. please excuse any grammatical, word or spelling errors. Time with Patient: Less than 30
[2023-04-07 22:13] LABS: Glucose,Whole Blood 182 mg/dL (70-110)
[2023-04-07] MEDS: ATORVASTATIN 20 MG TAB PO SCH (22:28)
[2023-04-07] MEDS: traZODone HCL 50 MG TAB PO PRN (22:28)
[2023-04-07] MEDS ORDERED: GABAPENTIN 100 MG CAP PO STA (23:11)
[2023-04-08] MEDS: SODIUM CHLORIDE 0.9% 500 ML 500 ML IV SCH (02:00)
[2023-04-08 06:48] LABS: Glucose,Whole Blood 142 mg/dL (70-110)
[2023-04-08] MEDS: HYDROcodone/APAP 5-325MG 1 EACH TAB PO PRN ×3 (06:57→18:28)
[2023-04-08] MEDS: INSULIN ASPART (NovoLOG) 100 UNIT/ML VIAL SQ SCH ×4 (06:59→20:49)
[2023-04-08] MEDS: SERTRALINE 100 MG TAB PO SCH (08:46)
[2023-04-08] MEDS: FOLIC ACID 1 MG TAB PO SCH (08:46)
[2023-04-08] MEDS: THIAMINE 100 MG TAB PO SCH (08:46)
[2023-04-08] MEDS: atenoloL 25 MG TAB PO SCH (08:46)
[2023-04-08] MEDS: buPROPion SR 150 MG TABLET.ER PO SCH (08:46)
[2023-04-08] MEDS: HEPARIN SODIUM,PORCINE 5,000 UNIT/ML 1 ML VIAL SQ SCH ×2 (08:47→20:50)
[2023-04-08] MEDS: GABAPENTIN 100 MG CAP PO PRN (09:39)
[2023-04-08 11:17] LABS: Glucose,Whole Blood 226 mg/dL (70-110)
--- NOTE | 2023-04-08 11:32 | P.PN ---
Subjective Progress Note Date: 04/08/23 67-year-old female came in for fever hyperglycemia. Patient is at [facility] her last drink was 1415 days ago patient is shaking quite a bit. Patient does have history of from her arthritis. Patient denied any cough denied any dysuria patient is comparing of the right flank pain moderate pain CT of the abdomen did show some possible pyelonephritis versus some pancreatitis in the tail of the pancreas. Lipase is not available which will be ordered, UA did show a white blood cell counseling and. Blood cultures were obtain patient had a fever of 103 COVID-19 influenza and RSV are negative. Patient main complaint is excessive shaking and patient complains a she has anxiety. 04/05/2023 Patient is seen and evaluated follow-up today reports having continued shaking and is maintained on antibiotics with infectious disease following with concerns of pyelonephritis. Urine culture preliminary showing gram-negative bacilli and blood cultures thus far are negative. Patient is febrile and having continued shaking and reports to feeling unwell. Patient also has decreased appetite and thin build will add Glucerna and encouraged oral intake. Patient also requiring increased oxygen demand currently on 10 L and did receive fluids we'll obtain a chest x-ray. Patient denies shortness of breath although pulse ox readings per nursing staff drop down to low 80s. A.m. labs currently pending 04/06/2023 Patient is seen in follow-up today and oxygen saturations have improved and patient is being weaned slowly off oxygen as tolerated. Patient is shaking with mild improvement being maintained on antibiotics with infectious disease following recent UTI with pyelonephritis. Blood cultures are pending and preliminary urine showing gram-negative bacilli awaiting finalized cultures. Patient having low-grade temps recommend to continue Tylenol. Patient had a episodes of diarrhea and will obtain a C. diff to rule out although suspicion is low and will add Imodium as needed is negative. Patient reports tolerating diet and continues with not much of an appetite. Patient encouraged to increase activity as tolerated and will have physical therapy evaluate the patient. CBC is trending down and magnesium is slightly low and will replace. 04/07/2023 Patient is seen in follow-up this morning weaning off FiO2 and down to 4 L at 100% and does not normally wear oxygen outpatient recommend weaning as tolerated and continuing with incentive spirometer use. Labs reviewed today reveal a no rmal white count and kidney functions are improvement with a creatinine of 1.13 today. Patient reports improvement in diarrhea as she was having multiple episodes yesterday. When necessary Imodium ordered a C. diff order was obtained although uncollected at this time. Finalized urine cultures show E. coli with sensitivities with infectious disease following maintained on ceftriaxone and blood cultures remain negative. Patient was seen and evaluated by physical therapy recommending rehab and awaiting a reevaluation as patient would still like to go home and does not want to go to rehab. Patient does not want to return to [facility] as well. [facility] was notified and would not be able to accommodate the patient if she were to return with oxygen. Patient has remained afebrile and have encouraged the patient oral intake and increased activity as tolerated. No reports of chest pain or shortness of breath. Patient denies nausea or vomiting and tolerating diet. 04/08/2023 Patient evaluated today resting in bed. ID gave recommendations for oral Ceftin 2 weeks on discharge. Physical therapy notes discussed with home care for subacute rehab, patient feels that she is too weak to discharge home at this time and feels she will need more help than just homecare. She is agreed for subacute rehab. Otherwise no acute events overnight she states that she tolerated breakfast well. Diarrhea seems to be improving. Review of systems: Constitutional: No reports of fatigue, no reports of fever and chills Cardiovascular: No reports of chest pain or palpitations Respiratory: No reports of shortness of breath or cough GI: No reports of nausea, vomiting, reports episodes of diarrhea yesterday that have improved, reports not much of an appetite but is attempting to increase o ral intake : No reports of dysuria or retention Neurovascular: reports of generalized weakness All medications have been reviewed PHYSICAL EXAMINATION: GENERAL: The patient is alert and oriented x3, not in any acute distress. Patient is not shaking today, thin built female, appears elderly HEENT: Pupils are round and equally reacting to light. EOMI. No scleral icterus. No conjunctival pallor. Normocephalic, atraumatic. No pharyngeal erythema. No thyromegaly. CARDIOVASCULAR: S1 and S2 present. No murmurs, rubs, or gallops. PULMONARY: Diminished breath sounds bilaterally otherwise Chest is clear to auscultation, no wheezing or crackles. ABDOMEN: Soft, thin built. minimal right flank tenderness as well as some left sided flank tenderness, nondistended, normoactive bowel sounds. No palpable organomegaly. MUSCULOSKELETAL: No joint swelling or deformity. EXTREMITIES: No cyanosis, clubbing, or pedal edema. NEUROLOGICAL: Gross neurological examination did not reveal any focal deficits. Diffusely weak SKIN: No rashes. Assessment: -Sepsis: Secondary to urinary tract infection and pyelonephritis, present on admission, culture showing E. coli with some sensitivities -Excessive shaking multifactorial, secondary to anxiety and fever, improved and patient is afebrile -Possibly pancreatitis as per the computed tomography scan of the abdomen, although suspicion is low. Lipase is normal at 47. Ruled out pancreatitis -Hypertension history -Acute renal failure secondary to sepsis continue with IV fluids, acute tubular necrosis, improving -Diarrhea, rule out C. diff -Hyperlipidemia -Peripheral neuropathy -Moderate protein calorie malnutrition with BMI of 18.3 -Type 2 diabetes mellitus uncontrolled with elevated blood sugars with sepsis -Hyperlipidemia -Rheumatoid arthritis history -Alcohol abuse history, presently from [facility], not having withdrawals as her last alcohol drink was 14 days ago, continue [facility] protocol -DVT prophylaxis: Subcutaneous heparin -GI prophylaxis -Full code Plan: Patient is continued on IV antibiotics with infectious disease following with acute urinary tract infection with pyelonephritis. Cultures finalized on the urine with E. coli with sensitivities and being transitioned to ceftriaxone per ID recommendations. Ceftin 2 weeks on discharge per ID. Patient was having multiple episodes of diarrhea and attempting to obtain a lthough no specimen provided. C. diff to rule out and continue Imodium as needed if negative Patient to continue gentle IV hydration . Kidney functions improving and and will follow-up with repeat labs Oxygen being titrated down this patient is 98% on 2 L, Encouraged incentive spirometer use at least 10 times every hour while awake. Case management following in the event patient may need home O2 evaluation. Continue monitoring Blood sugars with Accu-Cheks before meals and at bedtime and sliding scale Repeat a.m. labs and replace electrolytes per protocol Patient not eating much and has no real appetite, encouraged oral intake and will continue Glucerna supplements 3 times a day between meals Patient was at [facility] and does not want to return there. Case management contacted [facility] and they would be unable to accommodate the patient returning if she were to require oxygen Continue physical therapy daily. Patient has agreed to subacute rehab however there is no case management this weekend for evaluation and follow-up and this will need to be addressed on Monday. Discharge planning was discussed over the phone with patients sister Janel who helps the patient and does want rehab also. Patient will remain over the weekend pending case management. The impression and plan of care has been dictated by Ameena Mac, Nurse Practitioner as directed. Dr. Eleno MD I have performed a history and physical examination and medical decision making of this patient, discussed the same with the dictator, and agree with the dictators assessment and plan as written, documented as a scribe. Based on total visit time, I have performed more than 50% of this visit. Objective - Vital Signs Vital signs: Vital Signs Temp 98.7 F 04/08/23 07:14 Pulse 88 04/08/23 07:14 Resp 19 04/08/23 07:14 BP 169/91 04/08/23 07:14 Pulse Ox 97 04/08/23 09:47 FiO2 Intake & Output 04/07/23 04/08/23 04/08/23 18:59 06:59 18:59 Intake Total 720 100 Output Total 500 Balance 220 100 Intake: Intake, IV Titration 100 Amount cefTRIAXone 2 gm In 100 Sodium Chloride 0.9% 50 ml @ 100 mls/hr IVPB Q24HR [facility] Rx#:[id number] Oral 720 Output: Urine 500 Other: Voiding Method Bedside Commode External Catheter # Bowel Movements 0 0 1 - Labs CBC & Chem 7: 04/07/23 14:31 04/07/23 14:31 Labs: Abnormal Lab Results - Last 24 Hours (Table) 04/07/23 04/07/23 04/07/23 Range/Units 11:29 14:31 14:31 RBC 3.08 L (3.80-5.40) m/uL Hgb 10.4 L (11.4-16.0) gm/dL Hct 30.2 L (34.0-46.0) % Plt Count 463 H (150-450) k/uL Neutrophils # 8.0 H (1.3-7.7) k/uL Carbon Dioxide 19 L (22-30) mmol/L BUN 18 H (7-17) mg/dL Creatinine 1.13 H (0.52-1.04) mg/dL Glucose 184 H (74-99) mg/dL POC Glucose (mg/dL) 140 H (70-110) mg/dL 04/07/23 04/07/23 04/08/23 Range/Units 16:46 22:11 06:46 RBC (3.80-5.40) m/uL Hgb (11.4-16.0) gm/dL Hct (34.0-46.0) % Plt Count (150-450) k/uL Neutrophils # (1.3-7.7) k/uL Carbon Dioxide (22-30) mmol/L BUN (7-17) mg/dL Creatinine (0.52-1.04) mg/dL Glucose (74-99) mg/dL POC Glucose (mg/dL) 186 H 182 H 142 H (70-110) mg/dL 04/08/23 Range/Units 11:15 RBC (3.80-5.40) m/uL Hgb (11.4-16.0) gm/dL Hct (34.0-46.0) % Plt Count (150-450) k/uL Neutrophils # (1.3-7.7) k/uL Carbon Dioxide (22-30) mmol/L BUN (7-17) mg/dL Creatinine (0.52-1.04) mg/dL Glucose (74-99) mg/dL POC Glucose (mg/dL) 226 H (70-110) mg/dL Assessment and Plan Time with Patient: Less than 30
[2023-04-08] MEDS: LORazepam 2 MG/ML INJ IV PRN ×2 (15:41→20:51)
[2023-04-08 16:41] LABS: Glucose,Whole Blood 207 mg/dL (70-110)
[2023-04-08 20:10] LABS: Glucose,Whole Blood 282 mg/dL (70-110)
[2023-04-08] MEDS: GABAPENTIN 100 MG CAP PO SCH (20:50)
[2023-04-08] MEDS: ATORVASTATIN 20 MG TAB PO SCH (20:50)
[2023-04-09] MEDS: ACETAMINOPHEN TAB 325 MG TAB PO PRN (02:12)
[2023-04-09] MEDS: traZODone HCL 50 MG TAB PO PRN ×2 (02:16→23:36)
[2023-04-09] MEDS: SODIUM CHLORIDE 0.9% 500 ML 500 ML IV SCH (02:46)
[2023-04-09 06:00] LABS: Glucose,Whole Blood 139 mg/dL (70-110)
[2023-04-09] MEDS: INSULIN ASPART (NovoLOG) 100 UNIT/ML VIAL SQ SCH ×4 (06:43→21:36)
[2023-04-09] MEDS: SERTRALINE 100 MG TAB PO SCH (09:30)
[2023-04-09] MEDS: atenoloL 25 MG TAB PO SCH (09:30)
[2023-04-09] MEDS: HEPARIN SODIUM,PORCINE 5,000 UNIT/ML 1 ML VIAL SQ SCH ×2 (09:30→21:35)
[2023-04-09] MEDS: buPROPion SR 150 MG TABLET.ER PO SCH (09:30)
[2023-04-09] MEDS: THIAMINE 100 MG TAB PO SCH (09:30)
[2023-04-09] MEDS: GABAPENTIN 100 MG CAP PO SCH (09:30)
[2023-04-09] MEDS: FOLIC ACID 1 MG TAB PO SCH (09:30)
[2023-04-09] MEDS: HYDROcodone/APAP 5-325MG 1 EACH TAB PO PRN ×2 (09:31→15:32)
--- NOTE | 2023-04-09 10:53 | P.PN ---
Subjective Progress Note Date: 04/09/23 67-year-old female came in for fever hyperglycemia. Patient is at [facility] her last drink was 1415 days ago patient is shaking quite a bit. Patient does have history of from her arthritis. Patient denied any cough denied any dysuria patient is comparing of the right flank pain moderate pain CT of the abdomen did show some possible pyelonephritis versus some pancreatitis in the tail of the pancreas. Lipase is not available which will be ordered, UA did show a white blood cell counseling and. Blood cultures were obtain patient had a fever of 103 COVID-19 influenza and RSV are negative. Patient main complaint is excessive shaking and patient complains a she has anxiety. 04/05/2023 Patient is seen and evaluated follow-up today reports having continued shaking and is maintained on antibiotics with infectious disease following with concerns of pyelonephritis. Urine culture preliminary showing gram-negative bacilli and blood cultures thus far are negative. Patient is febrile and having continued shaking and reports to feeling unwell. Patient also has decreased appetite and thin build will add Glucerna and encouraged oral intake. Patient also requiring increased oxygen demand currently on 10 L and did receive fluids we'll obtain a chest x-ray. Patient denies shortness of breath although pulse ox readings per nursing staff drop down to low 80s. A.m. labs currently pending 04/06/2023 Patient is seen in follow-up today and oxygen saturations have improved and patient is being weaned slowly off oxygen as tolerated. Patient is shaking with mild improvement being maintained on antibiotics with infectious disease following recent UTI with pyelonephritis. Blood cultures are pending and preliminary urine showing gram-negative bacilli awaiting finalized cultures. Patient having low-grade temps recommend to continue Tylenol. Patient had a episodes of diarrhea and will obtain a C. diff to rule out although suspicion is low and will add Imodium as needed is negative. Patient reports tolerating diet and continues with not much of an appetite. Patient encouraged to increase activity as tolerated and will have physical therapy evaluate the patient. CBC is trending down and magnesium is slightly low and will replace. 04/07/2023 Patient is seen in follow-up this morning weaning off FiO2 and down to 4 L at 100% and does not normally wear oxygen outpatient recommend weaning as tolerated and continuing with incentive spirometer use. Labs reviewed today reveal a no rmal white count and kidney functions are improvement with a creatinine of 1.13 today. Patient reports improvement in diarrhea as she was having multiple episodes yesterday. When necessary Imodium ordered a C. diff order was obtained although uncollected at this time. Finalized urine cultures show E. coli with sensitivities with infectious disease following maintained on ceftriaxone and blood cultures remain negative. Patient was seen and evaluated by physical therapy recommending rehab and awaiting a reevaluation as patient would still like to go home and does not want to go to rehab. Patient does not want to return to [facility] as well. [facility] was notified and would not be able to accommodate the patient if she were to return with oxygen. Patient has remained afebrile and have encouraged the patient oral intake and increased activity as tolerated. No reports of chest pain or shortness of breath. Patient denies nausea or vomiting and tolerating diet. 04/08/2023 Patient evaluated today resting in bed. ID gave recommendations for oral Ceftin 2 weeks on discharge. Physical therapy notes discussed with home care for subacute rehab, patient feels that she is too weak to discharge home at this time and feels she will need more help than just homecare. She is agreed for subacute rehab. Otherwise no acute events overnight she states that she tolerated breakfast well. Diarrhea seems to be improving. 04/09/2023 Patient evaluated on the medical floor. No acute complaints overnight. Plan for oral ceftin x 2 weeks on discharge. Patient now wants to go to rehab this will need to followed up by CM on Monday. No labs available from today yet. Review of systems: Constitutional: No reports of fatigue, no reports of fever and chills Cardiovascular: No reports of chest pain or palpitations Respiratory: No reports of shortness of breath or cough GI: No reports of nausea, vomiting, reports episodes of diarrhea yesterday that have improved, reports not much of an appetite but is attempting to increase oral intake : No reports of dysuria or retention Neurovascular: reports of generalized weakness All medications have been reviewed PHYSICAL EXAMINATION: GENERAL: The patient is alert and oriented x3, not in any acute distress. Patient is not shaking today, thin built female, appears elderly HEENT: Pupils are round and equally reacting to light. EOMI. No scleral icterus. No conjunctival pallor. Normocephalic, atraumatic. No pharyngeal erythema. No thyromegaly. CARDIOVASCULAR: S1 and S2 present. No murmurs, rubs, or gallops. PULMONARY: Diminished breath sounds bilaterally otherwise Chest is clear to auscultation, no wheezing or crackles. ABDOMEN: Soft, thin built. minimal right flank tenderness as well as some left sided flank tenderness, nondistended, normoactive bowel sounds. No palpable organomegaly. MUSCULOSKELETAL: No joint swelling or deformity. EXTREMITIES: No cyanosis, clubbing, or pedal edema. NEUROLOGICAL: Gross neurological examination did not reveal any focal deficits. Diffusely weak SKIN: No rashes. Assessment: -Sepsis: Secondary to urinary tract infection and pyelonephritis, present on admission, culture showing E. coli with some sensitivities -Excessive shaking multifactorial, secondary to anxiety and fever, improved and patient is afebrile -Possibly pancreatitis as per the computed tomography scan of the abdomen, although suspicion is low. Lipase is normal at 47. Ruled out pancreatitis -Hypertension history -Acute renal failure secondary to sepsis continue with IV fluids, acute tubular necrosis, improving -Diarrhea, rule out C. diff -Hyperlipidemia -Peripheral neuropathy -Moderate protein calorie malnutrition with BMI of 18.3 -Type 2 diabetes mellitus uncontrolled with elevated blood sugars with sepsis -Hyperlipidemia -Rheumatoid arthritis history -Alcohol abuse history, presently from [facility], not having withdrawals as her last alcohol drink was 14 days ago, continue [facility] protocol -DVT prophylaxis: Subcutaneous heparin -GI prophylaxis -Full code Plan: Patient is continued on IV antibiotics with infectious disease following with acute urinary tract infection with pyelonephritis. Cultures finalized on the urine with E. coli with sensitivities and being transitioned to ceftriaxone per ID recommendations. Ceftin 2 weeks on discharge per ID. Patient was having multiple episodes of diarrhea and attempting to obtain although no specimen provided. C. diff to rule out and continue Imodium as needed if negative Patient to continue gentle IV hydration . Kidney functions improving and and will follow-up with repeat labs Oxygen being titrated down this patient is 98% on 2 L, Encouraged incentive spirometer use at least 10 times every hour while awake. Case management foll owing in the event patient may need home O2 evaluation. Continue monitoring Blood sugars with Accu-Cheks before meals and at bedtime and sliding scale Repeat a.m. labs and replace electrolytes per protocol Patient not eating much and has no real appetite, encouraged oral intake and will continue Glucerna supplements 3 times a day between meals Patient was at [facility] and does not want to return there. Case management contacted [facility] and they would be unable to accommodate the patient returning if she were to require oxygen Continue physical therapy daily. Patient has agreed to subacute rehab however there is no case management this weekend for evaluation and follow-up and this will need to be addressed on Monday. Discharge planning was discussed over the phone with patients sister Janel who helps the patient and does want rehab also. Patient will remain over the weekend pending case management. The impression and plan of care has been dictated by Ameena Mac, Nurse Practitioner as directed. Dr. Eleno MD I have performed a history and physical examination and medical decision making of this patient, discussed the same with the dictator, and agree with the dictators assessment and plan as written, documented as a scribe. Based on total visit time, I have performed more than 50% of this visit. Objective - Vital Signs Vital signs: Vital Signs Temp 98.2 F 04/09/23 08:30 Pulse 73 04/09/23 08:30 Resp 19 04/09/23 08:30 BP 144/81 04/09/23 08:30 Pulse Ox 97 04/09/23 08:30 FiO2 Intake & Output 04/08/23 04/09/23 04/09/23 18:59 06:59 18:59 Intake Total 100 Output Total 200 Balance -100 Intake: Intake, IV Titration 100 Amount cefTRIAXone 2 gm In 100 Sodium Chloride 0.9% 50 ml @ 100 mls/hr IVPB Q24HR [facility] Rx#:[id number] Output: Urine 200 Other: Voiding Method Bedside Commode Bedside Commode External Catheter External Catheter # Voids 3 # Bowel Movements 1 - Labs CBC & Chem 7: 04/07/23 14:31 04/07/23 14:31 Labs: Abnormal Lab Results - Last 24 Hours (Table) 04/08/23 04/08/23 04/08/23 Range/Units 11:15 16:40 20:09 POC Glucose (mg/dL) 226 H 207 H 282 H (70-110) mg/dL 04/09/23 Range/Units 05:55 POC Glucose (mg/dL) 139 H (70-110) mg/dL Microbiology - Last 24 Hours (Table) 04/03/23 21:45 Blood Culture - Final Blood 04/03/23 22:00 Blood Culture - Final Blood Assessment and Plan Time with Patient: Less than 30
[2023-04-09] MEDS: LORazepam 2 MG/ML INJ IV PRN ×3 (11:01→23:03)
[2023-04-09 11:25] LABS: Glucose,Whole Blood 159 mg/dL (70-110)
[2023-04-09 14:37] LABS: African American GFR (CKD) 62 (>60 ml/min/1.73 sqM); Anion Gap 13 mmol/L; Blood Urea Nitrogen 16 mg/dL (7-17); Calcium 9.4 mg/dL (8.4-10.2); Carbon Dioxide 23 mmol/L (22-30); Chloride 105 mmol/L (98-107); Glucose 143 mg/dL (74-99); Non-African American GFR(CKD) 54 (>60 ml/min/1.73 sqM); Potassium 4.2 mmol/L (3.5-5.1); Sodium 141 mmol/L (137-145)
--- NOTE | 2023-04-09 14:51 | P.PN ---
Subjective Progress Note Date: 04/08/23 Principal diagnosis: Reason for follow-up is sepsis and pyelonephritis Patient is a 67-year-old female with a past medical significant for diabetes mellitus hypertension hyperlipidemia rheumatoid arthritis patient presented to the hospital yesterday for evaluation of fever and elevated blood sugar, patient has been adequately nose with a right-sided pyelonephritis On today's evaluation that is 04/08/2023 the patient continues to be afebrile, the patient is breathing comfortably on room air and denies any shortness of breath, the patient denies chest pain or cough, patient denies abdominal pain, no nausea/vomiting or diarrhea. Patient white count normalized to 10.5 and creatinine is 1.13 as of 04/07/2023, urine culture with E. coli that is sensitive pathogen blood culture negative Objective - Vital Signs Vital signs: Vital Signs Temp 98.7 F 04/08/23 07:14 Pulse 88 04/08/23 07:14 Resp 19 04/08/23 07:14 BP 169/91 04/08/23 07:14 Pulse Ox 97 04/08/23 09:47 FiO2 Intake & Output 04/07/23 04/08/23 04/08/23 18:59 06:59 18:59 Intake Total 720 100 Output Total 500 Balance 220 100 Intake: Intake, IV Titration 100 Amount cefTRIAXone 2 gm In 100 Sodium Chloride 0.9% 50 ml @ 100 mls/hr IVPB Q24HR [facility] Rx#:[id number] Oral 720 Output: Urine 500 Other: Voiding Method Bedside Commode Bedside Commode External Catheter External Catheter # Bowel Movements 0 0 1 - Exam GENERAL DESCRIPTION: An elderly female lying in bed in no distress RESPIRATORY SYSTEM: Unlabored breathing , decreased breath sound at the base HEART: S1 S2 regular rate and rhythm , ABDOMEN: Soft , no tenderness EXTREMITIES: No edema feet - Labs CBC & Chem 7: 04/07/23 14:31 04/09/23 11:03 Labs: Abnormal Lab Results - Last 24 Hours (Table) 04/07/23 04/07/23 04/07/23 Range/Units 14:31 14:31 16:46 RBC 3.08 L (3.80-5.40) m/uL Hgb 10.4 L (11.4-16.0) gm/dL Hct 30.2 L (34.0-46.0) % Plt Count 463 H (150-450) k/uL Neutrophils # 8.0 H (1.3-7.7) k/uL Carbon Dioxide 19 L (22-30) mmol/L BUN 18 H (7-17) mg/dL Creatinine 1.13 H (0.52-1.04) mg/dL Glucose 184 H (74-99) mg/dL POC Glucose (mg/dL) 186 H (70-110) mg/dL 04/07/23 04/08/23 04/08/23 Range/Units 22:11 06:46 11:15 RBC (3.80-5.40) m/uL Hgb (11.4-16.0) gm/dL Hct (34.0-46.0) % Plt Count (150-450) k/uL Neutrophils # (1.3-7.7) k/uL Carbon Dioxide (22-30) mmol/L BUN (7-17) mg/dL Creatinine (0.52-1.04) mg/dL Glucose (74-99) mg/dL POC Glucose (mg/dL) 182 H 142 H 226 H (70-110) mg/dL Assessment and Plan (1) Pyelonephritis Current Visit: Yes Status: Acute Code(s): N12 - TUBULO-INTERSTITIAL NEPHRITIS, NOT SPCF ACUTE OR CHRONIC SNOMED Code(s): 05426411 (2) Sepsis Current Visit: Yes Status: Acute Code(s): A41.9 - SEPSIS, UNSPECIFIED ORGANISM SNOMED Code(s): 16198404 Plan: 1patient was in the hospital with sepsis in this patient who did have a fever tachycardia elevated white count source is likely right-sided pyonephritis likely from enteric gram-negative pathogen, urine has been finalized with E. coli that is sensitive pathogen 2patient slowly clinically improving and will continue with Rocephin 2 g daily and plan to finish therapy with oral Ceftin Dictation was produced using [employer] software. please excuse any grammatical, word or spelling errors. Time with Patient: Less than 30
--- NOTE | 2023-04-09 14:52 | P.PN ---
Subjective Progress Note Date: 04/09/23 Principal diagnosis: Reason for follow-up is sepsis and pyelonephritis Patient is a 67-year-old female with a past medical significant for diabetes mellitus hypertension hyperlipidemia rheumatoid arthritis patient presented to the hospital yesterday for evaluation of fever and elevated blood sugar, patient has been adequately nose with a right-sided pyelonephritis On today's evaluation that is 04/09/2023 the patient denies any fever or any chills, the patient denies shortness of breath chest pain or cough currently on room air, the patient nausea/vomiting or diarrhea and no abdominal pain. Patient white count normalized to 10.5 as of 04/07/2023 no CBC was done today, creatinine is 1.07, urine culture with E. coli that is sensitive pathogen blood culture negative Objective - Vital Signs Vital signs: Vital Signs Temp 98.7 F 04/09/23 12:56 Pulse 81 04/09/23 12:56 Resp 19 04/09/23 12:56 BP 149/88 04/09/23 12:56 Pulse Ox 95 04/09/23 12:56 FiO2 Intake & Output 04/08/23 04/09/23 04/09/23 18:59 06:59 18:59 Intake Total 100 Output Total 200 Balance -100 Intake: Intake, IV Titration 100 Amount cefTRIAXone 2 gm In 100 Sodium Chloride 0.9% 50 ml @ 100 mls/hr IVPB Q24HR [facility] Rx#:[id number] Output: Urine 200 Other: Voiding Method Bedside Commode Bedside Commode Toilet External Catheter External Catheter External Catheter # Voids 3 # Bowel Movements 1 - Exam GENERAL DESCRIPTION: An elderly female lying in bed in no distress RESPIRATORY SYSTEM: Unlabored breathing , decreased breath sound at the base HEART: S1 S2 regular rate and rhythm , ABDOMEN: Soft , no tenderness EXTREMITIES: No edema feet - Labs CBC & Chem 7: 04/07/23 14:31 04/09/23 11:03 Labs: Abnormal Lab Results - Last 24 Hours (Table) 04/08/23 04/08/23 04/09/23 Range/Units 16:40 20:09 05:55 Creatinine (0.52-1.04) mg/dL Glucose (74-99) mg/dL POC Glucose (mg/dL) 207 H 282 H 139 H (70-110) mg/dL Magnesium (1.6-2.3) mg/dL 04/09/23 04/09/23 04/09/23 Range/Units 11:03 11:03 11: Creatinine 1.07 H (0.52-1.04) mg/dL Glucose 143 H (74-99) mg/dL POC Glucose (mg/dL) 159 H (70-110) mg/dL Magnesium 1.4 L (1.6-2.3) mg/dL Microbiology - Last 24 Hours (Table) 04/03/23 21:45 Blood Culture - Final Blood 04/03/23 22:00 Blood Culture - Final Blood Assessment and Plan (1) Pyelonephritis Current Visit: Yes Status: Acute Code(s): N12 - TUBULO-INTERSTITIAL NEPHRITIS, NOT SPCF ACUTE OR CHRONIC SNOMED Code(s): 28232723 (2) Sepsis Current Visit: Yes Status: Acute Code(s): A41.9 - SEPSIS, UNSPECIFIED ORGANISM SNOMED Code(s): 76978485 Plan: 1patient was in the hospital with sepsis in this patient who did have a fever tachycardia elevated white count source is likely right-sided pyonephritis likely from enteric gram-negative pathogen, urine has been finalized with E. coli that is sensitive pathogen 2patient slowly clinically improving, with resolution of fever and the patient white count has normalized 3patient will continue with Rocephin 2 g daily and plan to finish therapy with oral Ceftin 2 weeks Dictation was produced using [employer] dictation software. please excuse any gr ammatical, word or spelling errors. Time with Patient: Less than 30
[2023-04-09] MEDS: MAGNESIUM SULFATE-D5W PMX 1 GM in DEXTROSE/WATER 1 100ML.BAG IVPB SCH ×2 (15:22→16:45)
[2023-04-09 16:39] LABS: Glucose,Whole Blood 220 mg/dL (70-110)
[2023-04-09 20:03] LABS: Glucose,Whole Blood 217 mg/dL (70-110)
[2023-04-09] MEDS: ATORVASTATIN 20 MG TAB PO SCH (21:34)
[2023-04-09] MEDS: GABAPENTIN 400 MG CAP PO SCH (21:35)
[2023-04-10] MEDS: SODIUM CHLORIDE 0.9% 500 ML 500 ML IV SCH (01:52)
[2023-04-10] MEDS: HYDROcodone/APAP 5-325MG 1 EACH TAB PO PRN ×4 (05:48→21:18)
[2023-04-10 05:51] LABS: Glucose,Whole Blood 157 mg/dL (70-110)
[2023-04-10] MEDS: LORazepam 2 MG/ML INJ IV PRN (06:38)
[2023-04-10] MEDS: INSULIN ASPART (NovoLOG) 100 UNIT/ML VIAL SQ SCH ×4 (06:38→20:25)
[2023-04-10 08:52] LABS: BUN/Creat Ratio 12.25 Ratio (12.00-20.00); Blood Urea Nitrogen 14.7 mg/dL (9.0-27.0); Calcium 9.3 mg/dL (8.7-10.3); Chloride 106 mmol/L (96-109); Glucose 145 mg/dL (70-110); Magnesium 1.8 mg/dL (1.5-2.4); Potassium 4.3 mmol/L (3.5-5.5); Sodium 141 mmol/L (135-145)
[2023-04-10] MEDS: buPROPion SR 150 MG TABLET.ER PO SCH (08:54)
[2023-04-10] MEDS: atenoloL 25 MG TAB PO SCH (08:54)
[2023-04-10] MEDS: HEPARIN SODIUM,PORCINE 5,000 UNIT/ML 1 ML VIAL SQ SCH ×2 (08:54→20:05)
[2023-04-10] MEDS: THIAMINE 100 MG TAB PO SCH (08:54)
[2023-04-10] MEDS: FOLIC ACID 1 MG TAB PO SCH (08:54)
[2023-04-10] MEDS: SERTRALINE 100 MG TAB PO SCH (08:54)
[2023-04-10] MEDS: GABAPENTIN 400 MG CAP PO SCH ×2 (08:54→20:01)
[2023-04-10 11:56] LABS: Glucose,Whole Blood 311 mg/dL (70-110)
[2023-04-10] MEDS: ALPRAZolam 0.25 MG TAB PO PRN (14:57)
[2023-04-10 16:43] LABS: Glucose,Whole Blood 202 mg/dL (70-110)
[2023-04-10 19:48] LABS: Glucose,Whole Blood 244 mg/dL (70-110)
[2023-04-10] MEDS: ACETAMINOPHEN TAB 325 MG TAB PO PRN (20:02)
[2023-04-10] MEDS: ATORVASTATIN 20 MG TAB PO SCH (20:05)
[2023-04-10] MEDS: traZODone HCL 50 MG TAB PO PRN (23:29)
[2023-04-11] MEDS: SODIUM CHLORIDE 0.9% 500 ML 500 ML IV SCH (01:42)
[2023-04-11] MEDS: HYDROcodone/APAP 5-325MG 1 EACH TAB PO PRN ×5 (02:01→20:51)
--- NOTE | 2023-04-11 03:58 | P.PN ---
Subjective Progress Note Date: 04/10/23 67-year-old female came in for fever hyperglycemia. Patient is at [facility] her last drink was 1415 days ago patient is shaking quite a bit. Patient does have history of from her arthritis. Patient denied any cough denied any dysuria patient is comparing of the right flank pain moderate pain CT of the abdomen did show some possible pyelonephritis versus some pancreatitis in the tail of the pancreas. Lipase is not available which will be ordered, UA did show a white blood cell counseling and. Blood cultures were obtain patient had a fever of 103 COVID-19 influenza and RSV are negative. Patient main complaint is excessive shaking and patient complains a she has anxiety. 04/05/2023 Patient is seen and evaluated follow-up today reports having continued shaking and is maintained on antibiotics with infectious disease following with concerns of pyelonephritis. Urine culture preliminary showing gram-negative bacilli and blood cultures thus far are negative. Patient is febrile and having continued shaking and reports to feeling unwell. Patient also has decreased appetite and thin build will add Glucerna and encouraged oral intake. Patient also requiring increased oxygen demand currently on 10 L and did receive fluids we'll obtain a chest x-ray. Patient denies shortness of breath although pulse ox readings per nursing staff drop down to low 80s. A.m. labs currently pending 04/06/2023 Patient is seen in follow-up today and oxygen saturations have improved and patient is being weaned slowly off oxygen as tolerated. Patient is shaking with mild improvement being maintained on antibiotics with infectious disease following recent UTI with pyelonephritis. Blood cultures are pending and preliminary urine showing gram-negative bacilli awaiting finalized cultures. Patient having low-grade temps recommend to continue Tylenol. Patient had a episodes of diarrhea and will obtain a C. diff to rule out although suspicion is low and will add Imodium as needed is negative. Patient reports tolerating diet and continues with not much of an appetite. Patient encouraged to increase activity as tolerated and will have physical therapy evaluate the patient. CBC is trending down and magnesium is slightly low and will replace. 04/07/2023 Patient is seen in follow-up this morning weaning off FiO2 and down to 4 L at 100% and does not normally wear oxygen outpatient recommend weaning as tolerated and continuing with incentive spirometer use. Labs reviewed today reveal a normal white count and kidney functions are improvement with a creatinine of 1.13 today. Patient reports improvement in diarrhea as she was having multiple episodes yesterday. When necessary Imodium ordered a C. diff order was obtained although uncollected at this time. Finalized urine cultures show E. coli with sensitivities with infectious disease following maintained on ceftriaxone and blood cultures remain negative. Patient was seen and evaluated by physical therapy recommending rehab and awaiting a reevaluation as patient would still like to go home and does not want to go to rehab. Patient does not want to return to [facility] as well. [facility] was notified and would not be able to accommodate the patient if she were to return with oxygen. Patient has remained afebrile and have encouraged the patient oral intake and increased activity as tolerated. No reports of chest pain or shortness of breath. Patient denies nausea or vomiting and tolerating diet. 04/08/2023 Patient evaluated today resting in bed. ID gave recommendations for oral Ceftin 2 weeks on discharge. Physical therapy notes discussed with home care for subacute rehab, patient feels that she is too weak to discharge home at this time and feels she will need more help than just homecare. She is agreed for subacute rehab. Otherwise no acute events overnight she states that she tolerated breakfast well. Diarrhea seems to be improving. 04/09/2023 Patient evaluated on the medical floor. No acute complaints overnight. Plan for oral ceftin x 2 weeks on discharge. Patient now wants to go to rehab this will need to followed up by CM on Monday. No labs available from today yet. 04/10/2073 Patient is seen in follow-up today continues to be weak and was evaluated by physical therapy recommending rehab and patient is now agreeable. There was no case management over the weekend to place referrals and currently awaiting on [facility]. Patient will continue on oral antibiotics in the form of Ceftin per ID recommendations. Urinary tract infection with pyelonephritis. Patient has been on room air and tolerating and recommend continue using incentive spirometer every hour. Patient with continued anxiety although does have CIWA protocol, will add low-dose Xanax as patient is not actively withdrawing and has not had a drink in over 2 weeks. Patient is currently afebrile with the reported chest pain or shortness of breath. Patient tolerating diet and recommend to continue with supplements and encourage diet. Increase activity as tolerated. Review of systems: Constitutional: No reports of fatigue, no reports of fever and chills Cardiovascular: No reports of chest pain or palpitations Respiratory: No reports of shortness of breath or cough GI: No reports of nausea, vomiting, no further diarrhea. Attempting to increase oral intake : No reports of dysuria or retention Neurovascular: reports of generalized weakness All medications have been reviewed PHYSICAL EXAMINATION: GENERAL: The patient is alert and oriented x3, Patient is anxious, thin built female, appears elderly HEENT: Pupils are round and equally reacting to light. EOMI. No scleral icterus. No conjunctival pallor. Normocephalic, atraumatic. No pharyngeal erythema. No thyromegaly. CARDIOVASCULAR: S1 and S2 muffled PULMONARY: Diminished breath sounds bilaterally otherwise Chest is clear to auscultation, no wheezing or crackles. ABDOMEN: Soft, thin built. minimal right flank tenderness as well as some left sided flank tenderness, nondistended, normoactive bowel sounds. No palpable organomegaly. MUSCULOSKELETAL: No joint swelling or deformity. EXTREMITIES: No cyanosis, clubbing, or pedal edema. NEUROLOGICAL: Gross neurological examination did not reveal any focal deficits. Diffusely weak SKIN: No rashes. Assessment: -Sepsis: Secondary to urinary tract infection and pyelonephritis, present on admission, culture showing E. coli with some sensitivities -Excessive shaking multifactorial, secondary to anxiety and fever, improved and patient is afebrile -Possibly pancreatitis as per the computed tomography scan of the abdomen, although suspicion is low. Lipase is normal at 47. Ruled out pancreatitis -Hypertension history -Acute renal failure secondary to sepsis continue with IV fluids, acute tubular necrosis, improving -Diarrhea, ruled out C. diff -Hyperlipidemia -Peripheral neuropathy -Moderate protein calorie malnutrition with BMI of 18.3 -Type 2 diabetes mellitus uncontrolled with elevated blood sugars with sepsis -Hyperlipidemia -Rheumatoid arthritis history -Alcohol abuse history, presently from [facility], not having withdrawals as her last alcohol drink was almost 3 weeks ago -Anxiety -DVT prophylaxis: Subcutaneous heparin -GI prophylaxis -Full code Plan: Patient is continued on IV antibiotics with infectious disease following with acute urinary tract infection with pyelonephritis. Cultures finalized on the urine with E. coli with sensitivities and being transitioned to ceftriaxone per ID recommendations. Ceftin 2 weeks on discharge per ID. Patient to continue gentle IV hydration . Kidney functions improving Oxygen being titrated down and currently on room air, Encouraged incentive spirometer use at least 10 times every hour while awake. Case management following and patient is agreeable to rehab as patient was evaluated by physical therapy recommending rehab. Initially patient wanted to go home although feels is unsafe to return home at this time due to significant weakness. Patient will require insurance authorization which is currently p ending. Continue monitoring Blood sugars with Accu-Cheks before meals and at bedtime and sliding scale Repeat a.m. labs and replace electrolytes per protocol Encouraged oral intake and will continue Glucerna supplements 3 times a day between meals Continue physical therapy daily. Will await insurance authorization and planning on ECF Due to multiple complex medical issues, prognosis is guarded The impression and plan of care has been dictated by Mya Manley, Nurse Practitioner as directed. Dr. Srini MD I have performed a history and examination and MDM of this patient, discussed the same with the dictator, and agree with the dictator's assessment and plan as written ,documented as a scribe. Based on total visit time, I have performed more than 50% of the visit. Objective - Vital Signs Vital signs: Vital Signs Temp 98.4 F 04/11/23 01:55 Pulse 71 04/11/23 01:55 Resp 18 04/11/23 01:55 BP 165/84 04/11/23 01:55 Pulse Ox 98 04/11/23 01:55 FiO2 Intake & Output 04/10/23 04/10/23 04/11/23 06:59 18:59 06:59 Other: Voiding Method Toilet Toilet Toilet Diaper # Voids 3 3 - Labs CBC & Chem 7: 04/07/23 14:31 04/10/23 05:53 Labs: Abnormal Lab Results - Last 24 Hours (Table) 04/10/23 04/10/23 04/10/23 Range/Units 05:50 05:53 11:54 Est GFR (CKD-EPI) 49 L (>=60) Glucose 145 H (70-110) mg/dL POC Glucose (mg/dL) 157 H 311 H (70-110) mg/dL 04/10/23 04/10/23 Range/Units 16:41 19:46 Est GFR (CKD-EPI) (>=60) Glucose (70-110) mg/dL POC Glucose (mg/dL) 202 H 244 H (70-110) mg/dL
[2023-04-11 06:03] LABS: Glucose,Whole Blood 149 mg/dL (70-110)
[2023-04-11] MEDS: INSULIN ASPART (NovoLOG) 100 UNIT/ML VIAL SQ SCH ×4 (06:56→20:50)
[2023-04-11] MEDS: atenoloL 25 MG TAB PO SCH (08:35)
[2023-04-11] MEDS: FOLIC ACID 1 MG TAB PO SCH (08:36)
[2023-04-11] MEDS: buPROPion SR 150 MG TABLET.ER PO SCH (08:36)
[2023-04-11] MEDS: SERTRALINE 100 MG TAB PO SCH (08:37)
[2023-04-11] MEDS: NIFEdipine XL 30 MG TAB.ER.24 PO SCH (08:37)
[2023-04-11] MEDS: HEPARIN SODIUM,PORCINE 5,000 UNIT/ML 1 ML VIAL SQ SCH ×2 (08:37→20:50)
[2023-04-11] MEDS: THIAMINE 100 MG TAB PO SCH (08:37)
[2023-04-11] MEDS: GABAPENTIN 400 MG CAP PO SCH ×2 (08:37→20:51)
[2023-04-11 09:17] LABS: Basophils # (A) 0.1 k/uL (0-0.2); Basophils % (A) 0 %; Eosinophils # (A) 0.3 k/uL (0-0.7); Eosinophils % (A) 3 %; HCT 29.8 % (34.0-46.0); HGB 9.6 gm/dL (11.4-16.0); Hypochromasia Slight; Lymphocytes # (A) 2.2 k/uL (1.0-4.8); Lymphocytes % (A) 18 %; MCHC 32.2 g/dL (31.0-37.0); MCV 102.4 fL (80.0-100.0); Macrocytosis Slight; Mean Platelet Volume 8.7; Monocytes # (A) 0.7 k/uL (0-1.0); Monocytes % (A) 6 %; Neutrophils # (A) 8.5 k/uL (1.3-7.7); Neutrophils % (A) 70 %; Platelet Count 696 k/uL (150-450); RBC 2.91 m/uL (3.80-5.40); RDW 15.8 % (11.5-15.5)
[2023-04-11 09:33] LABS: African American GFR (CKD) 58 (>60 ml/min/1.73 sqM); Anion Gap 13 mmol/L; Blood Urea Nitrogen 15 mg/dL (7-17); Calcium 9.9 mg/dL (8.4-10.2); Carbon Dioxide 21 mmol/L (22-30); Chloride 105 mmol/L (98-107); Glucose 135 mg/dL (74-99); Magnesium 1.4 mg/dL (1.6-2.3); Non-African American GFR(CKD) 50 (>60 ml/min/1.73 sqM); Potassium 4.3 mmol/L (3.5-5.1); Sodium 139 mmol/L (137-145)
[2023-04-11] MEDS: MAGNESIUM SULFATE-D5W PMX 1 GM in DEXTROSE/WATER 1 100ML.BAG IVPB SCH ×2 (10:59→12:27)
[2023-04-11 11:36] LABS: Glucose,Whole Blood 221 mg/dL (70-110)
--- NOTE | 2023-04-11 15:24 | P.PN ---
Subjective Progress Note Date: 04/10/23 Principal diagnosis: Reason for follow-up is sepsis and pyelonephritis Patient is a 67-year-old female with a past medical significant for diabetes mellitus hypertension hyperlipidemia rheumatoid arthritis patient presented to the hospital yesterday for evaluation of fever and elevated blood sugar, patient has been adequately nose with a right-sided pyelonephritis On today's evaluation that is 04/10/2023 the patient remains to be afebrile, the patient is breathing comfortably on room air and no need for supplemental oxygen, the patient denies having any chest pain denies any cough or sputum production, patient denies any abdominal pain no nausea vomiting or any diarrhea, Patient white count normalized to 10.5 as of 04/07/2023 no CBC was done today, creatinine is 1.2, urine culture with E. coli that is sensitive pathogen blood culture negative Objective - Vital Signs Vital signs: Vital Signs Temp 98.2 F 04/10/23 07:22 Pulse 82 04/10/23 08:51 Resp 19 04/10/23 08:51 BP 156/82 04/10/23 07:22 Pulse Ox 95 04/10/23 07:22 FiO2 Intake & Output 04/09/23 04/10/23 04/10/23 18:59 06:59 18:59 Output Total 150 Balance -150 Output: Urine 150 Other: Voiding Method Toilet Toilet Toilet External Catheter Diaper # Voids 3 - Exam GENERAL DESCRIPTION: An elderly female lying in bed in no distress RESPIRATORY SYSTEM: Unlabored breathing , decreased breath sound at the base HEART: S1 S2 regular rate and rhythm , ABDOMEN: Soft , no tenderness EXTREMITIES: No edema feet - Labs CBC & Chem 7: 04/11/23 08:38 04/11/23 08:38 Labs: Abnormal Lab Results - Last 24 Hours (Table) 04/09/23 04/09/23 04/09/23 Range/Units 11:03 11:03 11:23 Creatinine 1.07 H (0.52-1.04) mg/dL Est GFR (CKD-EPI) (>=60) Glucose 143 H (74-99) mg/dL POC Glucose (mg/dL) 159 H (70-110) mg/dL Magnesium 1.4 L (1.6-2.3) mg/dL 04/09/23 04/09/23 04/10/23 Range/Units 16:38 20:02 05:50 Creatinine (0.52-1.04) mg/dL Est GFR (CKD-EPI) (>=60) Glucose (74-99) mg/dL POC Glucose (mg/dL) 220 H 217 H 157 H (70-110) mg/dL Magnesium (1.6-2.3) mg/dL 04/10/23 Range/Units 05:53 Creatinine (0.52-1.04) mg/dL Est GFR (CKD-EPI) 49 L (>=60) Glucose 145 H (74-99) mg/dL POC Glucose (mg/dL) (70-110) mg/dL Magnesium (1.6-2.3) mg/dL Assessment and Plan (1) Pyelonephritis Current Visit: Yes Status: Acute Code(s): N12 - TUBULO-INTERSTITIAL NEPHRITIS, NOT SPCF ACUTE OR CHRONIC SNOMED Code(s): 34893641 (2) Sepsis Current Visit: Yes Status: Acute Code(s): A41.9 - SEPSIS, UNSPECIFIED ORGANISM SNOMED Code(s): 36903076 Plan: 1patient was in the hospital with sepsis in this patient who did have a fever tachycardia elevated white count source is likely right-sided pyonephritis likely from enteric gram-negative pathogen, urine has been finalized with E. coli that is sensitive pathogen 2patient did have clinical improvement, and the patient did have resolution of fever and the patient white count has normalized as of 04/07/2023 3patient to continue with Rocephin 2 g daily while inpatient and monitor clinical course closely Dictation was produced using [employer] dictation software. please excuse any grammatical, word or spelling errors. Time with Patient: Less than 30
--- NOTE | 2023-04-11 15:25 | P.PN ---
Subjective Progress Note Date: 04/11/23 Principal diagnosis: Reason for follow-up is sepsis and pyelonephritis Patient is a 67-year-old female with a past medical significant for diabetes mellitus hypertension hyperlipidemia rheumatoid arthritis patient presented to the hospital yesterday for evaluation of fever and elevated blood sugar, patient has been adequately nose with a right-sided pyelonephritis On today's evaluation that is 04/11/2023, the patient continues to be afebrile and is breathing comfortably on room air, and patient denies any shortness of breath, chest pain, no cough or sputum production, patient denies nausea/vomiting /diarrhea and no abdominal pain. Patient has been asking for more Neurontin for her neuropathy pain Patient white count is 12, creatinine is 1.13, urine culture with E. coli that is sensitive pathogen blood culture negative Objective - Vital Signs Vital signs: Vital Signs Temp 98.6 F 04/11/23 07:31 Pulse 78 04/11/23 07:31 Resp 20 04/11/23 07:31 BP 178/97 04/11/23 07:31 Pulse Ox 98 04/11/23 07:31 FiO2 Intake & Output 04/10/23 04/11/23 04/11/23 18:59 06:59 18:59 Other: Voiding Method Toilet Toilet # Voids 3 2 - Exam GENERAL DESCRIPTION: An elderly female lying in bed in no distress RESPIRATORY SYSTEM: Unlabored breathing , decreased breath sound at the base HEART: S1 S2 regular rate and rhythm , ABDOMEN: Soft , no tenderness EXTREMITIES: No edema feet - Labs CBC & Chem 7: 04/11/23 08:38 04/11/23 08:38 Labs: Abnormal Lab Results - Last 24 Hours (Table) 04/10/23 04/10/23 04/11/23 Range/Units 16:41 19:46 06:01 WBC (3.8-10.6) k/uL RBC (3.80-5.40) m/uL Hgb (11.4-16.0) gm/dL Hct (34.0-46.0) % MCV (80.0-100.0) fL RDW (11.5-15.5) % Plt Count (150-450) k/uL Neutrophils # (1.3-7.7) k/uL Carbon Dioxide (22-30) mmol/L Creatinine (0.52-1.04) mg/dL Glucose (74-99) mg/dL POC Glucose (mg/dL) 202 H 244 H 149 H (70-110) mg/dL Magnesium (1.6-2.3) mg/dL 04/11/23 04/11/23 04/11/23 Range/Units 08:38 08:38 11:35 WBC 12.0 H (3.8-10.6) k/uL RBC 2.91 L (3.80-5.40) m/uL Hgb 9.6 L (11.4-16.0) gm/dL Hct 29.8 L (34.0-46.0) % MCV 102.4 H (80.0-100.0) fL RDW 15.8 H (11.5-15.5) % Plt Count 696 H (150-450) k/uL Neutrophils # 8.5 H (1.3-7.7) k/uL Carbon Dioxide 21 L (22-30) mmol/L Creatinine 1.13 H (0.52-1.04) mg/dL Glucose 135 H (74-99) mg/dL POC Glucose (mg/dL) 221 H (70-110) mg/dL Magnesium 1.4 L (1.6-2.3) mg/dL Assessment and Plan (1) Pyelonephritis Current Visit: Yes Status: Acute Code(s): N12 - TUBULO-INTERSTITIAL NEP HRITIS, NOT SPCF ACUTE OR CHRONIC SNOMED Code(s): 10592916 (2) Sepsis Current Visit: Yes Status: Acute Code(s): A41.9 - SEPSIS, UNSPECIFIED ORGANISM SNOMED Code(s): 17734938 Plan: 1patient was in the hospital with sepsis in this patient who did have a fever tachycardia elevated white count source is likely right-sided pyonephritis likely from enteric gram-negative pathogen, urine has been finalized with E. coli that is sensitive pathogen 2patient did have clinical improvement, and will continue with Rocephin 2 g daily while inpatient, white count Is mildly elevated today and will monitor closely Dictation was produced using [employer] dictation software. please excuse any grammatical, word or spelling errors. Time with Patient: Less than 30
[2023-04-11 16:05] LABS: Glucose,Whole Blood 146 mg/dL (70-110)
[2023-04-11] MEDS: ALPRAZolam 0.25 MG TAB PO PRN (18:45)
[2023-04-11 20:29] LABS: Glucose,Whole Blood 202 mg/dL (70-110)
[2023-04-11] MEDS: ATORVASTATIN 20 MG TAB PO SCH (20:51)
[2023-04-11] MEDS: traZODone HCL 50 MG TAB PO PRN (23:45)
--- NOTE | 2023-04-12 01:56 | P.PN ---
Subjective Progress Note Date: 04/11/23 67-year-old female came in for fever hyperglycemia. Patient is at [facility] her last drink was 1415 days ago patient is shaking quite a bit. Patient does have history of from her arthritis. Patient denied any cough denied any dysuria patient is comparing of the right flank pain moderate pain CT of the abdomen did show some possible pyelonephritis versus some pancreatitis in the tail of the pancreas. Lipase is not available which will be ordered, UA did show a white blood cell counseling and. Blood cultures were obtain patient had a fever of 103 COVID-19 influenza and RSV are negative. Patient main complaint is excessive shaking and patient complains a she has anxiety. 04/05/2023 Patient is seen and evaluated follow-up today reports having continued shaking and is maintained on antibiotics with infectious disease following with concerns of pyelonephritis. Urine culture preliminary showing gram-negative bacilli and blood cultures thus far are negative. Patient is febrile and having continued shaking and reports to feeling unwell. Patient also has decreased appetite and thin build will add Glucerna and encouraged oral intake. Patient also requiring increased oxygen demand currently on 10 L and did receive fluids we'll obtain a chest x-ray. Patient denies shortness of breath although pulse ox readings per nursing staff drop down to low 80s. A.m. labs currently pending 04/06/2023 Patient is seen in follow-up today and oxygen saturations have improved and patient is being weaned slowly off oxygen as tolerated. Patient is shaking with mild improvement being maintained on antibiotics with infectious disease following recent UTI with pyelonephritis. Blood cultures are pending and preliminary urine showing gram-negative bacilli awaiting finalized cultures. Patient having low-grade temps recommend to continue Tylenol. Patient had a episodes of diarrhea and will obtain a C. diff to rule out although suspicion is low and will add Imodium as needed is negative. Patient reports tolerating diet and continues with not much of an appetite. Patient encouraged to increase activity as tolerated and will have physical therapy evaluate the patient. CBC is trending down and magnesium is slightly low and will replace. 04/07/2023 Patient is seen in follow-up this morning weaning off FiO2 and down to 4 L at 100% and does not normally wear oxygen outpatient recommend weaning as tolerated and continuing with incentive spirometer use. Labs reviewed today reveal a normal white count and kidney functions are improvement with a creatinine of 1.13 today. Patient reports improvement in diarrhea as she was having multiple episodes yesterday. When necessary Imodium ordered a C. diff order was obtained although uncollected at this time. Finalized urine cultures show E. coli with sensitivities with infectious disease following maintained on ceftriaxone and blood cultures remain negative. Patient was seen and evaluated by physical therapy recommending rehab and awaiting a reevaluation as patient would still like to go home and does not want to go to rehab. Patient does not want to return to [facility] as well. [facility] was notified and would not be able to accommodate the patient if she were to return with oxygen. Patient has remained afebrile and have encouraged the patient oral intake and increased activity as tolerated. No reports of chest pain or shortness of breath. Patient denies nausea or vomiting and tolerating diet. 04/08/2023 Patient evaluated today resting in bed. ID gave recommendations for oral Ceftin 2 weeks on discharge. Physical therapy notes discussed with home care for subacute rehab, patient feels that she is too weak to discharge home at this time and feels she will need more help than just homecare. She is agreed for subacute rehab. Otherwise no acute events overnight she states that she tolerated breakfast well. Diarrhea seems to be improving. 04/09/2023 Patient evaluated on the medical floor. No acute complaints overnight. Plan for oral ceftin x 2 weeks on discharge. Patient now wants to go to rehab this will need to followed up by CM on Monday. No labs available from today yet. 04/10/2073 Patient is seen in follow-up today continues to be weak and was evaluated by physical therapy recommending rehab and patient is now agreeable. There was no case management over the weekend to place referrals and currently awaiting on [facility]. Patient will continue on oral antibiotics in the form of Ceftin per ID recommendations. Urinary tract infection with pyelonephritis. Patient has been on room air and tolerating and recommend continue using incentive spirometer every hour. Patient with continued anxiety although does have CIWA protocol, will add low-dose Xanax as patient is not actively withdrawing and has not had a drink in over 2 weeks. Patient is currently afebrile with the reported chest pain or shortness of breath. Patient tolerating diet and recommend to continue with supplements and encourage diet. Increase activity as tolerated. 04/11/2023 Patient is seen in follow-up today and continues on IV ceftriaxone with infectious disease following for UTI with pyelonephritis. Culture showing E. coli was sensitive and will likely transition to oral antibiotics on discharge. Patient continues with significant weakness would benefit from rehab and physical therapy evaluated the patient recommending rehab. Case management following an insurance authorization was submitted for [facility] which is currently pending. Patient is afebrile and white count remained slightly elevated will follow-up with repeat labs. Magnesium 1.5 and will replace per protocol. Encouraged oral intake and increased activity as tolerated. Patient has been weaned to room air and denies any worsening shortness of breath. Patient needs to get up out of the bed more often and co ntinue the use of incentive spirometer at least 10 times every hour while awake. Review of systems: Constitutional: No reports of fatigue, no reports of fever and chills Cardiovascular: No reports of chest pain or palpitations Respiratory: No reports of shortness of breath or cough GI: No reports of nausea, vomiting, no further diarrhea. Attempting to increase oral intake : No reports of dysuria or retention Neurovascular: reports of generalized weakness All medications have been reviewed PHYSICAL EXAMINATION: GENERAL: The patient is alert and oriented x3, Patient is less anxious, thin built female, appears elderly HEENT: Pupils are round and equally reacting to light. EOMI. No scleral icterus. No conjunctival pallor. Normocephalic, atraumatic. No pharyngeal erythema. No thyromegaly. CARDIOVASCULAR: S1 and S2 muffled PULMONARY: Diminished breath sounds bilaterally otherwise Chest is clear to auscultation, no wheezing or crackles. ABDOMEN: Soft, thin built. Mild right flank tenderness as well as some left sided flank tenderness, nondistended, normoactive bowel sounds. No palpable organomegaly. MUSCULOSKELETAL: No joint swelling or deformity. EXTREMITIES: No cyanosis, clubbing, or pedal edema. NEUROLOGICAL: Gross neurological examination did not reveal any focal deficits. Diffusely weak SKIN: No rashes. Assessment: -Sepsis: Secondary to urinary tract infection and pyelonephritis, present on admission, culture showing E. coli with some sensitivities -Excessive shaking multifactorial, secondary to anxiety and fever, improved and patient remains afebrile -Hypertension history -Acute renal failure secondary to sepsis continue with IV fluids, acute tubular necrosis, improving -Diarrhea, ruled out C. diff -Hyperlipidemia -Peripheral neuropathy -Moderate protein calorie malnutrition with BMI of 18.3 -Type 2 diabetes mellitus uncontrolled with elevated blood sugars with sepsis -Hyperlipidemia -Rheumatoid arthritis history -Alcohol abuse history, presently from [facility], not having withdrawals as her last alcohol drink was almost 3 weeks ago -Anxiety -DVT prophylaxis: Subcutaneous heparin -GI prophylaxis -Full code Plan: Patient is continued on IV antibiotics with infectious disease following with acute urinary tract infection with pyelonephritis. Cultures finalized on the urine with E. coli with sensitivities and continued ceftriaxone per ID recommendations. Ceftin 2 weeks on discharge per ID. white count mildly elevated and will follow-up with repeat labs. Patient is afebrile Patient to continue gentle IV hydration . Kidney functions improving Magnesium slightly low at 1.5 and will replace per protocol follow-up with repeat labs Oxygen has been weaned and currently on room air, Encouraged incentive spirometer use at least 10 times every hour while awake. Case management following and patient is agreeable to rehab as patient was evaluated by physical therapy recommending rehab. Patient accepted at [facility] and insurance authorization was submitted and is currently pending. Continue monitoring Blood sugars with Accu-Cheks before meals and at bedtime and sliding scale Repeat a.m. labs and replace electrolytes per protocol Encouraged oral intake and will continue Glucerna supplements 3 times a day b etween meals Continue physical therapy daily. Patient would benefit from ECF for continued PT/OT therapy as patient has had prolonged hospitalization with significant weakness and was independent and ambulatory prior to this admission. Sister who helps take care of her feels she is unsafe for discharge home at this time. Will await insurance authorization and planning on [facility] Due to multiple complex medical issues, prognosis is guarded Possible discharge planning in the next 24-48 hours The impression and plan of care has been dictated by Mya Manley, Nurse Practitioner as directed. Dr. Srini MD I have performed a history and examination and MDM of this patient, discussed the same with the dictator, and agree with the dictator's assessment and plan as written ,documented as a scribe. Based on total visit time, I have performed more than 50% of the visit. Objective - Vital Signs Vital signs: Vital Signs Temp 98.3 F 04/12/23 00:30 Pulse 70 04/12/23 00:30 Resp 18 04/12/23 00:30 BP 136/79 04/12/23 00:30 Pulse Ox 96 04/12/23 00:30 FiO2 Intake & Output 04/11/23 04/11/23 04/12/23 06:59 18:59 06:59 Intake Total 490 Balance 490 Weight 45.359 kg Intake: Intake, IV Titration 490 Amount Magnesium Sulfate-D5w Pmx 200 1 gm In Dextrose/Water 1 100ml.bag @ 100 mls/hr IVPB Q1H [facility] Rx#: [id number] Sodium Chloride 0.9% 500 240 ml 500 ml @ 20 mls/hr IV .Q24H [facility] Rx#:[id number] cefTRIAXone 2 gm In 50 Sodium Chloride 0.9% 50 ml @ 100 mls/hr IVPB Q24HR [facility] Rx#:[id number] Other: Voiding Method Toilet # Voids 2 - Labs CBC & Chem 7: 04/11/23 08:38 04/11/23 08:38 Labs: Abnormal Lab Results - Last 24 Hours (Table) 04/11/23 04/11/23 04/11/23 Range/Units 06:01 08:38 08:38 WBC 12.0 H (3.8-10.6) k/uL RBC 2.91 L (3.80-5.40) m/uL Hgb 9.6 L (11.4-16.0) gm/dL Hct 29.8 L (34.0-46.0) % MCV 102.4 H (80.0-100.0) fL RDW 15.8 H (11.5-15.5) % Plt Count 696 H (150-450) k/uL Neutrophils # 8.5 H (1.3-7.7) k/uL Carbon Dioxide 21 L (22-30) mmol/L Creatinine 1.13 H (0.52-1.04) mg/dL Glucose 135 H (74-99) mg/dL POC Glucose (mg/dL) 149 H (70-110) mg/dL Magnesium 1.4 L (1.6-2.3) mg/dL 04/11/23 04/11/23 04/11/23 Range/Units 11:35 16:04 20:28 WBC (3.8-10.6) k/uL RBC (3.80-5.40) m/uL Hgb (11.4-16.0) gm/dL Hct (34.0-46.0) % MCV (80.0-100.0) fL RDW (11.5-15.5) % Plt Count (150-450) k/uL Neutrophils # (1.3-7.7) k/uL Carbon Dioxide (22-30) mmol/L Creatinine (0.52-1.04) mg/dL Glucose (74-99) mg/dL POC Glucose (mg/dL) 221 H 146 H 202 H (70-110) mg/dL Magnesium (1.6-2.3) mg/dL
[2023-04-12] MEDS: SODIUM CHLORIDE 0.9% 500 ML 500 ML IV SCH (02:06)
[2023-04-12] MEDS: HYDROcodone/APAP 5-325MG 1 EACH TAB PO PRN ×4 (02:52→14:04)
[2023-04-12 06:07] LABS: Glucose,Whole Blood 145 mg/dL (70-110)
[2023-04-12] MEDS: INSULIN ASPART (NovoLOG) 100 UNIT/ML VIAL SQ SCH ×2 (06:34→14:04)
[2023-04-12] MEDS: HEPARIN SODIUM,PORCINE 5,000 UNIT/ML 1 ML VIAL SQ SCH (09:21)
[2023-04-12] MEDS: GABAPENTIN 400 MG CAP PO SCH (09:22)
[2023-04-12] MEDS: FOLIC ACID 1 MG TAB PO SCH (09:22)
[2023-04-12] MEDS: SERTRALINE 100 MG TAB PO SCH (09:22)
[2023-04-12] MEDS: THIAMINE 100 MG TAB PO SCH (09:22)
[2023-04-12] MEDS: NIFEdipine XL 30 MG TAB.ER.24 PO SCH (09:22)
[2023-04-12] MEDS: ALPRAZolam 0.25 MG TAB PO PRN (09:22)
[2023-04-12] MEDS: atenoloL 25 MG TAB PO SCH (09:22)
[2023-04-12] MEDS: buPROPion SR 150 MG TABLET.ER PO SCH (09:22)
[2023-04-12 11:23] LABS: Glucose,Whole Blood 240 mg/dL (70-110)
[2023-04-12 15:29] VITALS: BP 125/70; PULSE 79; RESP 18; TEMP 98.2
--- NOTE | 2023-04-12 17:10 | P.PN ---
Subjective Progress Note Date: 04/12/23 Principal diagnosis: Reason for follow-up is sepsis and pyelonephritis Patient is a 67-year-old female with a past medical significant for diabetes mellitus hypertension hyperlipidemia rheumatoid arthritis patient presented to the hospital yesterday for evaluation of fever and elevated blood sugar, patient has been adequately nose with a right-sided pyelonephritis On today's evaluation that is 04/12/2023 the patient remains to be afebrile, the patient is breathing comfortably on room air and no need for supplemental oxygen, the patient denies having any chest pain or cough and no sputum production, patient denies nausea vomiting or any diarrhea, and no abdominal pain Patient white count is 12, creatinine is 1.13 as of yesterday no lab draw was done today, urine culture with E. coli that is sensitive pathogen blood culture negative Objective - Vital Signs Vital signs: Vital Signs Temp 98.4 F 04/12/23 08:00 Pulse 86 04/12/23 08:00 Resp 17 04/12/23 08:00 BP 131/75 04/12/23 08:00 Pulse Ox 95 04/12/23 08:00 FiO2 Intake & Output 04/11/23 04/12/23 04/12/23 18:59 06:59 18:59 Intake Total 490 Balance 490 Weight 45.359 kg Intake: Intake, IV Titration 490 Amount Magnesium Sulfate-D5w Pmx 200 1 gm In Dextrose/Water 1 100ml.bag @ 100 mls/hr IVPB Q1H [facility] Rx#: [id number] Sodium Chloride 0.9% 500 240 ml 500 ml @ 20 mls/hr IV .Q24H [facility] Rx#:[id number] cefTRIAXone 2 gm In 50 Sodium Chloride 0.9% 50 ml @ 100 mls/hr IVPB Q24HR [facility] Rx#:[id number] Other: Voiding Method Toilet Toilet # Voids 1 - Exam GENERAL DESCRIPTION: An elderly female lying in bed in no distress RESPIRATORY SYSTEM: Unlabored breathing , decreased breath sound at the base HEART: S1 S2 regular rate and rhythm , ABDOMEN: Soft , no tenderness EXTREMITIES: No edema feet - Labs CBC & Chem 7: 04/11/23 08:38 04/11/23 08:38 Labs: Abnormal Lab Results - Last 24 Hours (Table) 12/05/23 12/05/23 12/06/23 Range/Units 16:04 20:28 06:06 POC Glucose (mg/dL) 146 H 202 H 145 H (70-110) mg/dL 04/12/23 Range/Units 11:21 POC Glucose (mg/dL) 240 H (70-110) mg/dL Assessment and Plan (1) Pyelonephritis Status: Acute Code(s): N12 - TUBULO-INTERSTITIAL NEPHRITIS, NOT SPCF ACUTE OR CHRONIC SNOMED Code(s): 08772310 (2) Sepsis Status: Acute Code(s): A41.9 - SEPSIS, UNSPECIFIED ORGANISM SNOMED Code(s): 98057103 Plan: 1patient was in the hospital with sepsis in this patient who did have a fever tachycardia elevated white count source is likely right-sided pyonephritis likely from enteric gram-negative pathogen, urine has been finalized with E. coli that is sensitive pathogen 2patient did have clinical improvement, plan is to finish therapy with oral Ceftin 10 days and a close patient follow-up Dictation was produced using [employer] dictation software. please excuse any grammatical, word or spelling errors. Time with Patient: Less than 30
[2023-04-12 19:51] LABS: Magnesium 1.8 mg/dL (1.5-2.4)
[2023-04-12 20:41] LABS: BUN/Creat Ratio 10.92 Ratio (12.00-20.00); Blood Urea Nitrogen 13.1 mg/dL (9.0-27.0); Calcium 10.4 mg/dL (8.7-10.3); Carbon Dioxide 21.1 mmol/L (21.6-31.8); Chloride 102 mmol/L (96-109); Glucose 190 mg/dL (70-110); Potassium 5.4 mmol/L (3.5-5.5); Sodium 136 mmol/L (135-145)
[2023-04-13 01:26] LABS: Basophils # (A) 0.09 X 10*3/uL (0.00-0.10); Basophils % (A) 0.7 %; Crenated RBC 2+; Eosinophils # (A) 0.26 X 10*3/uL (0.04-0.35); Lymphocytes # (A) 2.02 X 10*3/uL (0.90-5.00); Lymphocytes % (A) 15.9 %; MCH 32.8 pg (27.0-32.0); MCHC 31.3 g/dL (32.0-37.0); MCV 104.9 FL (80.0-97.0); Mean Platelet Volume 10.2 FL (9.5-12.2); Monocytes # (A) 0.66 X 10*3/uL (0.20-1.00); Monocytes % (A) 5.2 %; NRBC Per 100 WBC 0 X 10*3/uL (0.00-0.01); Neutrophils # (A) 9.52 X 10*3/uL (1.80-7.70); Neutrophils % (A) 75.1 %; Platelet Count 866 X 10*3/uL (140-440); RBC 3.05 X 10*6/uL (4.10-5.20); RDW 15.4 % (11.5-14.5); WBC 12.69 X 10*3/uL (4.50-10.00)
== END 2023-04-12 16:02 | disposition home or self-care (01) | DRG 871 ==
LOC: EC 12:35 → 4SSUR 23:15
PROVIDERS: ADMIT Hospitalist; ATTEND Hospitalist
PROC: 05HC33Z Insertion of Infusion Device into Left Basilic Vein, Percutaneous Approach (ICD-10-PCS; principal; 2023-04-05 14:20)
DX: A41.51 Sepsis due to Escherichia coli [E. coli] (principal); N17.0 Acute kidney failure with tubular necrosis; N12 Tubulo-interstitial nephritis, not specified as acute or chronic; E44.0 Moderate protein-calorie malnutrition; Z68.1 Body mass index [BMI] 19.9 or less, adult; E11.65 Type 2 diabetes mellitus with hyperglycemia; R19.7 Diarrhea, unspecified; E78.5 Hyperlipidemia, unspecified; F10.11 Alcohol abuse, in remission; E83.42 Hypomagnesemia; F41.9 Anxiety disorder, unspecified; E11.42 Type 2 diabetes mellitus with diabetic polyneuropathy; M19.90 Unspecified osteoarthritis, unspecified site; I10 Essential (primary) hypertension; M06.9 Rheumatoid arthritis, unspecified; R65.20 Severe sepsis without septic shock; Z79.899 Other long term (current) drug therapy; Z79.4 Long term (current) use of insulin; Z11.52 Encounter for screening for COVID-19
CPT/HCPCS: 36410; 36415; 71045; 71046; 74176; 76937; 80048; 80053; 81001; 82009; 82565; 82803; 83036; 83605; 83690; 83735; 85025; 87040; 87077; 87086; 87186; 87636; 93005; 94760; 96361; 96365; 96366; 96367; 96375; 96376; 99285